=== PATIENT | female | born 1990 | race African-American/Black ===

== ENCOUNTER 2017-06-03 15:24 | Emergency (ER) | payer SELFPAY ==
[2017-06-03 16:42] LABS: Bilirubin Moderate (Negative); Blood, Urine Moderate (Negative); Glucose, Urine (Dipstick) Negative (Negative); Ketone, Urine 80 mg/dL (Negative); Nitrite Negative (Negative); Protein, Urine (Dipstick) 30 mg/dL (Neg-Trace)
[2017-06-03 16:44] LABS: Hematocrit 37.9 % (36.0-47.0); Mean Platelet Volume 11.1 fL (7.4-10.4); Red Blood Cell (RBC) Count 5.12 mill/uL (4.20-5.40); White Blood Cell (WBC) Count 8.8 thou/uL (4.8-10.8)
[2017-06-03 16:45] LABS: Bacteria/HPF None Seen HPF (None Seen)
[2017-06-03 16:49] LABS: Hyaline Casts/LPF 0-3 HYALINE CAST LPF (0-3 Hyaline); Renal Epithelial None Seen HPF (0-3); Transitional Epithelial NONE SEEN HPF (0-3)
[2017-06-03 16:58] LABS: Anion Gap 15 mmol/L (10-20); BUN (Urea Nitrogen) 8 mg/dL (7.0-18.7); Calc. Creatinine Clearance 0 mL/min (70-130); Calcium 9.5 mg/dL (7.8-10.44); Carbon Dioxide 21 mmol/L (22-29); Chloride 105 mmol/L (98-107); Estimated GFR-MDRD Greater than 90
[2017-06-03 17:16] LABS: #Basophils 0.1 thou/uL (0.0-0.2); #Eosinphils 0.1 thou/uL (0.0-0.7); #Lymphocytes 2.2 thou/uL (1.20-3.40); #Monocytes 0.7 thou/uL (0.11-0.59); #Neutrophils 5.7 thou/uL (1.40-6.50); %Basophils 0.6 % (0.0-1.0); %Eosinophils 1.4 % (0.0-10.0); %Lymphocytes 25.2 % (21.0-51.0); %Monocytes 7.9 % (0.0-10.0); Anisocytosis SLIGHT = 6-15 cells (100X) (0-5/hpf); Hypochromia SLIGHT = 6-15 cells (100X) (0-5/hpf); Microcytosis SLIGHT = 6-15 cells (100X) (0-5/hpf)
[2017-06-03] MEDS ORDERED: Ketorolac Tromethamine 30 MG/ML VIAL ONE (17:53)
[2017-06-03] MEDS ORDERED: Ondansetron HCl/PF 4 MG/2 ML Vial ONE (17:53)
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
== END 2017-06-03 21:04 | disposition home or self-care (01) ==
LOC: ERS 15:24
DX: R05 Cough (principal); R09.81 Nasal congestion; J45.909 Unspecified asthma, uncomplicated; G40.409 Other generalized epilepsy and epileptic syndromes, not intractable, without status epilepticus; F31.9 Bipolar disorder, unspecified; F20.9 Schizophrenia, unspecified; F17.210 Nicotine dependence, cigarettes, uncomplicated
CPT/HCPCS: 36415; 71020; 80048; 81003; 81015; 81025; 85025; 87086; 96361; 96374; 96375; J1885; J2405

== ENCOUNTER 2017-07-28 23:52 | Emergency (ER) | payer SELFPAY ==
[2017-07-29 00:45] LABS: ALT (SGPT) 10 U/L (8-55); AST (SGOT) 14 U/L (5-34); Albumin 4.3 g/dL (3.5-5.0); Alkaline Phosphatase 45 U/L (40-150); Anion Gap 14 mmol/L (10-20); BUN (Urea Nitrogen) 9 mg/dL (7.0-18.7); Bilirubin, Total 0.8 mg/dL (0.2-1.2); Calc. Creatinine Clearance 0 mL/min (70-130); Calcium 9.5 mg/dL (7.8-10.44); Carbon Dioxide 23 mmol/L (22-29); Chloride 106 mmol/L (98-107); Estimated GFR-MDRD Greater than 90; Globulin 2.9 g/dL (2.4-3.5); Glucose 100 mg/dL (70-105); Potassium 3.1 mmol/L (3.5-5.1); Protein, Total 7.2 g/dL (6.0-8.3); Sodium 140 mmol/L (136-145)
[2017-07-29 00:52] LABS: Hemoglobin 13.1 g/dL (12.0-16.0); Mean Corpuscular HGB CONC 32.7 g/dL (32.0-36.0); Mean Corpuscular Hemoglobin 24.8 pg (27.0-31.0); Mean Platelet Volume 10.6 fL (7.4-10.4); Platelet Count 172 thou/uL (130-400); RBC Distribution Width 17.5 % (11.5-14.5); Red Blood Cell (RBC) Count 5.27 mill/uL (4.20-5.40); White Blood Cell (WBC) Count 7.7 thou/uL (4.8-10.8)
[2017-07-29 01:05] LABS: Eosinophils 1 % (0-10); Lymphocytes 49 % (21-51); MDiff Complete? YES; Monocytes 6 % (0-10); Neutrophil 44 % (42-75); Target Cells SLIGHT = 2-5 cells (100X) (0-1/hpf)
[2017-07-29] MEDS ORDERED: Mag-Al 1200 mg/1200 mg/30 ML UDCUP ONE (03:21)
[2017-07-29] MEDS ORDERED: Ondansetron ODT 4 MG TAB ONE (03:21)
[2017-07-29] MEDS ORDERED: Lidocaine Viscous Sol 2% 15 ml UD Cup ONE (03:22)
[2017-07-29] MEDS ORDERED: Promethazine 25 MG TAB ONE (03:33)
== END 2017-07-29 04:25 | disposition home or self-care (01) ==
LOC: ERS 23:52
DX: K29.70 Gastritis, unspecified, without bleeding (principal); J45.909 Unspecified asthma, uncomplicated; F31.9 Bipolar disorder, unspecified; F20.9 Schizophrenia, unspecified; F17.210 Nicotine dependence, cigarettes, uncomplicated
CPT/HCPCS: 36415; 80053; 85025; 99406; Q0162

== ENCOUNTER 2017-09-05 10:20 | Observation (INO) | payer SELFPAY ==
[2017-09-05] MEDS ORDERED: Ondansetron HCl/PF 4 MG/2 ML Vial ONE (10:33)
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
[2017-09-05 10:56] LABS: Hemoglobin 12.4 g/dL (12.0-16.0); Mean Corpuscular HGB CONC 31.8 g/dL (32.0-36.0); Mean Corpuscular Hemoglobin 24.1 pg (27.0-31.0); Mean Corpuscular Volume 75.7 fl (81.0-99.0); Mean Platelet Volume 10.4 fL (7.4-10.4); Platelet Count 171 thou/uL (130-400); RBC Distribution Width 17.4 % (11.5-14.5); Red Blood Cell (RBC) Count 5.15 mill/uL (4.20-5.40); White Blood Cell (WBC) Count 7.9 thou/uL (4.8-10.8)
[2017-09-05 11:01] LABS: BHCG - Serum Negative (NEGATIVE); Pregs Control Background? CLEAR/WHITE (CLR/WHITE); Pregs Control Bar Appear? YES (CONTROL BAR)
[2017-09-05 11:15] LABS: ALT (SGPT) 157 U/L (8-55); AST (SGOT) 297 U/L (5-34); Albumin 4.2 g/dL (3.5-5.0); Alkaline Phosphatase 48 U/L (40-150); Anion Gap 14 mmol/L (10-20); BUN (Urea Nitrogen) 9 mg/dL (7.0-18.7); Bilirubin, Total 1.5 mg/dL (0.2-1.2); Calc. Creatinine Clearance 0 mL/min (70-130); Carbon Dioxide 21 mmol/L (22-29); Chloride 106 mmol/L (98-107); Estimated GFR-MDRD Greater than 90; Globulin 2.9 g/dL (2.4-3.5); Glucose 110 mg/dL (70-105); Potassium 3.5 mmol/L (3.5-5.1); Protein, Total 7.1 g/dL (6.0-8.3); Sodium 137 mmol/L (136-145)
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
[2017-09-05 11:20] LABS: Anisocytosis SLIGHT = 6-15 cells (100X) (0-5/hpf); Lymphocytes 40 % (21-51); MDiff Complete? YES; Microcytosis SLIGHT = 6-15 cells (100X) (0-5/hpf); Monocytes 2 % (0-10); Myelocyte 1 % (0-0); Neutrophil 41 % (42-75); Nucleated RBC 1 % (0); Ovalocytes SLIGHT = 2-5 cells (100X) (0-1/hpf); PLT Morphology Comment Appears Adequate; Polychromasia SLIGHT = 2-3 cells (100X) (0-2/hpf); Reactive Lymphocytes 15 % (0-10); Target Cells MODERATE= 6-15 cells (100X) (0-1/hpf)
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
[2017-09-05] MEDS ORDERED: Ketorolac Tromethamine 30 MG/ML VIAL ONE (11:31)
[2017-09-05 11:49] LABS: Bilirubin Negative (Negative); Blood, Urine Large (Negative); Clarity CLOUDY (Clear); Glucose, Urine (Dipstick) Negative (Negative); Leukocyte Negative (Negative); Nitrite Negative (Negative); Protein, Urine (Dipstick) 100 mg/dL (Neg-Trace); pH, Urine 6.5 (5.0-9.0)
[2017-09-05 11:55] LABS: Specific Gravity, Urine 1.052 (1.002-1.036)
[2017-09-05 12:09] LABS: Bacteria/HPF None Seen HPF (None Seen); Squamous Epithelial 0-3 HPF (0-3); WBC/HPF 0-3 HPF (0-3)
[2017-09-05 12:10] LABS: Hyaline Casts/LPF NONE SEEN LPF (0-3 Hyaline)
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
[2017-09-05] MEDS ORDERED: HYDROcodone/Acetaminophen 10/325 mg Tablet PO PRN (14:46)
[2017-09-05] MEDS ORDERED: Dextrose 5% in Water 1,000 ML IV PRN ×2 (14:46→15:45)
[2017-09-05] MEDS ORDERED: Cyclobenzaprine 10 MG TAB PO PRN (14:46)
[2017-09-05] MEDS ORDERED: Acetaminophen 500 MG TAB PO SCH (14:46)
[2017-09-05] MEDS ORDERED: hydrALAZINE 20 MG/ML VIAL SLOW IVP PRN (14:46)
[2017-09-05] MEDS ORDERED: Ondansetron ODT 4 MG TAB PO PRN (14:46)
[2017-09-05] MEDS ORDERED: Dextrose 50% Abboject 50 ML SYRINGE SLOW IVP PRN ×2 (14:46→15:45)
[2017-09-05] MEDS: Acetaminophen 325 MG TAB PO SCH ×2 (16:05→23:01)
[2017-09-05] MEDS: traMADol HCl 50 MG TAB PO SCH ×2 (16:06→23:01)
[2017-09-05] MEDS: Ibuprofen 600 MG TAB PO SCH ×2 (16:06→23:01)
[2017-09-05 16:13] LABS: Hemoglobin 12.2 g/dL (12.0-16.0)
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
[2017-09-05 16:49] VITALS: BMI 26.2
[2017-09-05] MEDS ORDERED: ISOVUE-370 76%-LOCM 1 ML ONE (17:18)
[2017-09-05] MEDS: Sodium Chloride 0.9% 1,000 ML IV SCH (17:52)
[2017-09-05] MEDS: Ondansetron HCl/PF 4 MG/2 ML Vial IVP PRN (17:52)
[2017-09-05] MEDS: Famotidine 20 MG TAB PO SCH (23:02)
[2017-09-05 23:12] LABS: Hemoglobin 11.4 g/dL (12.0-16.0)
[2017-09-06] MEDS: Acetaminophen 325 MG TAB PO SCH ×6 (02:51→20:47)
[2017-09-06] MEDS: traMADol HCl 50 MG TAB PO SCH ×5 (03:40→20:47)
[2017-09-06] MEDS: Sodium Chloride 0.9% 1,000 ML IV SCH ×4 (03:41→23:43)
[2017-09-06 04:52] LABS: ALT (SGPT) 114 U/L (8-55); AST (SGOT) 99 U/L (5-34); Albumin 3.6 g/dL (3.5-5.0); Alkaline Phosphatase 39 U/L (40-150); Anion Gap 11 mmol/L (10-20); BUN (Urea Nitrogen) 9 mg/dL (7.0-18.7); Band 2 % (5-11); Bilirubin, Total 1.5 mg/dL (0.2-1.2); Calc. Creatinine Clearance 120 mL/min (70-130); Calcium 8.5 mg/dL (7.8-10.44); Carbon Dioxide 22 mmol/L (22-29); Chloride 108 mmol/L (98-107); Estimated GFR-MDRD Greater than 90; Globulin 2.6 g/dL (2.4-3.5); Glucose 78 mg/dL (70-105); Hemoglobin 10.6 g/dL (12.0-16.0); Lymphocytes 34 % (21-51); MDiff Complete? YES; Mean Corpuscular Hemoglobin 24.1 pg (27.0-31.0); Mean Corpuscular Volume 75.5 fl (81.0-99.0); Monocytes 8 % (0-10); Neutrophil 56 % (42-75); Platelet Count 137 thou/uL (130-400); Potassium 3.6 mmol/L (3.5-5.1); Protein, Total 6.2 g/dL (6.0-8.3); RBC Distribution Width 17.1 % (11.5-14.5); Red Blood Cell (RBC) Count 4.38 mill/uL (4.20-5.40); Sodium 137 mmol/L (136-145); White Blood Cell (WBC) Count 7.2 thou/uL (4.8-10.8)
[2017-09-06] MEDS: Ibuprofen 600 MG TAB PO SCH ×3 (05:39→20:52)
[2017-09-06] MEDS: Ferrous Sulfate 325 MG TAB PO SCH ×2 (08:07→17:27)
[2017-09-06] MEDS: Ascorbic Acid 500 mg Chewable Tablet PO SCH ×2 (08:07→20:48)
[2017-09-06] MEDS: Famotidine 20 MG TAB PO SCH ×2 (08:07→20:47)
[2017-09-06] MEDS: Ondansetron HCl/PF 4 MG/2 ML Vial IVP PRN ×2 (09:17→17:08)
[2017-09-06] MEDS ORDERED: hydrOXYzine 25 MG TAB PO PRN (10:10)
[2017-09-06] MEDS ORDERED: Phenytoin 50 MG Chewable Tablet PO SCH (15:00)
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
[2017-09-06] MEDS: Ketorolac Tromethamine 30 MG/ML VIAL IVP SCH ×2 (18:23→23:45)
[2017-09-06] MEDS: Acetaminophen 1,000 MG in Premix Bag 1 BAG IVPB SCH ×2 (18:24→23:45)
[2017-09-06] MEDS: risperiDONE 1 MG TAB PO SCH ×2 (20:35→20:49)
[2017-09-06] MEDS: Benztropine 1 MG TAB PO SCH ×2 (20:35→20:46)
[2017-09-07] MEDS: Acetaminophen 325 MG TAB PO SCH ×6 (00:01→21:42)
[2017-09-07] MEDS: traMADol HCl 50 MG TAB PO SCH ×4 (02:38→21:46)
[2017-09-07] MEDS ORDERED: Promethazine HCl 25 MG/ML VIAL IM PRN ×2 (02:57→02:59)
[2017-09-07] MEDS: Ketorolac Tromethamine 30 MG/ML VIAL IVP SCH ×2 (05:09→11:51)
[2017-09-07] MEDS: Ibuprofen 600 MG TAB PO SCH ×3 (05:09→21:42)
[2017-09-07] MEDS: Acetaminophen 1,000 MG in Premix Bag 1 BAG IVPB SCH ×3 (05:10→16:50)
[2017-09-07 05:57] LABS: Eosinophils 1 % (0-10); Hemoglobin 10.7 g/dL (12.0-16.0); Hypochromia SLIGHT = 6-15 cells (100X) (0-5/hpf); Lymphocytes 30 % (21-51); MDiff Complete? YES; Mean Corpuscular HGB CONC 31.9 g/dL (32.0-36.0); Mean Corpuscular Hemoglobin 24.3 pg (27.0-31.0); Mean Corpuscular Volume 76.2 fl (81.0-99.0); Mean Platelet Volume 10.2 fL (7.4-10.4); Monocytes 5 % (0-10); Neutrophil 63 % (42-75); Platelet Count 140 thou/uL (130-400); RBC Distribution Width 17.1 % (11.5-14.5); Reactive Lymphocytes 1 % (0-10); Red Blood Cell (RBC) Count 4.42 mill/uL (4.20-5.40); Target Cells SLIGHT = 2-5 cells (100X) (0-1/hpf); White Blood Cell (WBC) Count 5.6 thou/uL (4.8-10.8)
[2017-09-07 05:59] LABS: Anion Gap 14 mmol/L (10-20); BUN (Urea Nitrogen) 7 mg/dL (7.0-18.7); Calc. Creatinine Clearance 124 mL/min (70-130); Calcium 8.6 mg/dL (7.8-10.44); Carbon Dioxide 17 mmol/L (22-29); Chloride 108 mmol/L (98-107); Estimated GFR-MDRD Greater than 90; Glucose 61 mg/dL (70-105); Magnesium 1.8 mg/dL (1.6-2.6); Phosphorus 2.7 mg/dL (2.3-4.7); Potassium 3.6 mmol/L (3.5-5.1); Sodium 135 mmol/L (136-145)
[2017-09-07] MEDS ORDERED: Dextrose 5 %-0.45 % NaCl 1,000 ML IV SCH (06:45)
[2017-09-07] MEDS ORDERED: Phenytoin 50 MG Chewable Tablet PO SCH ×2 (09:00→10:00)
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
[2017-09-07] MEDS: Famotidine 20 MG TAB PO SCH ×2 (10:51→21:44)
[2017-09-07] MEDS: Benztropine 1 MG TAB PO SCH ×2 (10:51→21:44)
[2017-09-07] MEDS: Citalopram 20 MG TAB PO SCH (10:51)
[2017-09-07] MEDS: Ferrous Sulfate 325 MG TAB PO SCH ×2 (10:51→16:49)
[2017-09-07] MEDS: Ascorbic Acid 500 mg Chewable Tablet PO SCH ×2 (10:51→21:41)
[2017-09-07] MEDS: Phenytoin 50 MG Chewable Tablet PO SCH ×2 (15:04→21:41)
[2017-09-07] MEDS: risperiDONE 1 MG TAB PO SCH (21:43)
[2017-09-07] MEDS ORDERED: HYDROcodone/Acetaminophen 10/325 mg Tablet PO PRN (22:00)
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
[2017-09-08] MEDS: traMADol HCl 50 MG TAB PO SCH ×5 (01:50→21:30)
[2017-09-08] MEDS: Ibuprofen 600 MG TAB PO SCH ×3 (01:50→21:30)
[2017-09-08] MEDS: Acetaminophen 325 MG TAB PO SCH ×5 (01:50→23:59)
[2017-09-08] MEDS: Ferrous Sulfate 325 MG TAB PO SCH ×2 (09:11→15:16)
[2017-09-08] MEDS: Benztropine 1 MG TAB PO SCH ×2 (09:11→21:37)
[2017-09-08] MEDS: Ascorbic Acid 500 mg Chewable Tablet PO SCH ×2 (09:11→21:37)
[2017-09-08] MEDS: Citalopram 20 MG TAB PO SCH (09:12)
[2017-09-08] MEDS: Famotidine 20 MG TAB PO SCH ×2 (09:12→21:37)
[2017-09-08] MEDS: Phenytoin 50 MG Chewable Tablet PO SCH ×3 (10:39→21:29)
[2017-09-08 13:13] VITALS: TEMP 97.9
[2017-09-08] MEDS ORDERED: Senokot S 8.6-50 MG TAB PO SCH (21:00)
[2017-09-08] MEDS: risperiDONE 1 MG TAB PO SCH (21:37)
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
[2017-09-09] MEDS: traMADol HCl 50 MG TAB PO SCH (02:45)
[2017-09-09] MEDS: Acetaminophen 325 MG TAB PO SCH (06:06)
[2017-09-09] MEDS: Ibuprofen 600 MG TAB PO SCH (06:06)
[2017-09-09 08:47] VITALS: BP 159/61
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
--- NOTE | 2017-09-13 18:03 | EKG ---
Test Reason : Blood Pressure : / mmHG Vent. Rate : 066 BPM Atrial Rate : 066 BPM P-R Int : 190 ms QRS Dur : 078 ms QT Int : 418 ms P-R-T Axes : 066 045 036 degrees QTc Int : 438 ms Normal sinus rhythm with sinus arrhythmia Normal ECG Confirmed by MICHELE VIGIL, OLGA ([id number]), editor greeting card ANETTE BOLIVAR ([id number]) on 09/13/2017 6:03:14 PM Referred By: Confirmed By:OLGA BAUTISTA MD
== END 2017-09-09 09:31 | disposition home or self-care (01) ==
LOC: ERS 10:20 → SJJU 11:21
PROVIDERS: ADMIT Surgery; ATTEND Surgery
DX: S32.019A Unspecified fracture of first lumbar vertebra, initial encounter for closed fracture (principal); K66.1 Hemoperitoneum; G89.11 Acute pain due to trauma; K56.7 Ileus, unspecified; F41.9 Anxiety disorder, unspecified; F31.9 Bipolar disorder, unspecified; J45.909 Unspecified asthma, uncomplicated; F17.210 Nicotine dependence, cigarettes, uncomplicated; Z88.0 Allergy status to penicillin; Z90.49 Acquired absence of other specified parts of digestive tract; V49.9XXA Car occupant (driver) (passenger) injured in unspecified traffic accident, initial encounter
CPT/HCPCS: 36415; 70450; 71045; 71260; 72125; 72170; 74019; 74177; 80048; 80053; 81003; 81015; 82150; 83735; 84100; 84703; 85025; 93005; 96361; 96374; 96375; 96376; G0378; G0390; J0131; J1885; J2270; J2405; J2550

== ENCOUNTER 2018-02-17 10:38 | Emergency (ER) | payer SELFPAY ==
[2018-02-17 11:12] LABS: Bilirubin Small (Negative); Blood, Urine Negative (Negative); Clarity CLOUDY (Clear); Glucose, Urine (Dipstick) Negative (Negative); Leukocyte Small (Negative); Nitrite Negative (Negative); Protein, Urine (Dipstick) 30 mg/dL (Neg-Trace); Specific Gravity, Urine 1.031 (1.002-1.036)
[2018-02-17 11:14] LABS: Bacteria/HPF 1+ HPF (None Seen); RBC/HPF 0-3 HPF (0-3); Squamous Epithelial 21-50 HPF (0-3)
[2018-02-17 11:16] LABS: Pathc Cast-AUWi Flag 4.65 (0-2.49)
[2018-02-17 11:17] LABS: Pregnancy Test - Urine (BHCG) POSITIVE (Negative); Pregu Control Background? CLEAR/WHITE (CLR/WHITE); Pregu Control Bar Appear? YES (CONTROL BAR); Specific Gravity 1.031 (1.002-1.036)
[2018-02-17 11:28] LABS: Hyaline Casts/LPF 0-3 HYALINE CAST LPF (0-3 Hyaline); Other Casts/LPF None Seen LPF (0-3 Hyaline)
[2018-02-17] MEDS ORDERED: Promethazine HCl 25 MG/ML VIAL ONE (11:38)
[2018-02-17 11:40] LABS: Hemoglobin 12.3 g/dL (12.0-16.0); Mean Corpuscular Hemoglobin 23.7 pg (27.0-31.0); Mean Corpuscular Volume 71.7 fL (78.0-98.0); Mean Platelet Volume 9.5 fL (7.4-10.4); Platelet Count 251 thou/uL (130-400); Red Blood Cell (RBC) Count 5.19 mill/uL (4.20-5.40); White Blood Cell (WBC) Count 13.7 thou/uL (4.8-10.8)
[2018-02-17 11:59] LABS: Anisocytosis SLIGHT = 6-15 cells (100X) (0-5/hpf); Eosinophils 1 % (0-10); Lymphocytes 36 % (21-51); MDiff Complete? YES; Microcytosis SLIGHT = 6-15 cells (100X) (0-5/hpf); Monocytes 5 % (0-10); Neutrophil 58 % (42-75); PLT Morphology Comment Appears Adequate; Target Cells SLIGHT = 2-5 cells (100X) (0-1/hpf)
[2018-02-17] MEDS ORDERED: diphenhydrAMINE 50 MG/ML VIAL ONE (12:54)
[2018-02-17] MEDS ORDERED: Metoclopramide HCl 10 MG/2 ML VIAL ONE (12:54)
[2018-02-17 12:56] LABS: Anion Gap 18 mmol/L (10-20); BUN (Urea Nitrogen) 9 mg/dL (7.0-18.7); Calc. Creatinine Clearance 0 mL/min (70-130); Calcium 9.6 mg/dL (7.8-10.44); Carbon Dioxide 17 mmol/L (22-29); Chloride 106 mmol/L (98-107); Estimated GFR-MDRD Greater than 90; Glucose 120 mg/dL (70-105); Potassium 3.9 mmol/L (3.5-5.1); Sodium 137 mmol/L (136-145)
[2018-02-17] MEDS ORDERED: cefTRIAXone\\ROCEPHIN 1 GM VIAL ONE (14:54)
--- NOTE | 2018-02-17 15:49 | ULT ---
PELVIC ULTRASOUND: 02/17/18 COMPARISON: None. HISTORY: Positive test and pelvic pain. TECHNIQUE: Multiplanar stark scale sonographic imaging of the pelvis obtained with transabdominal and endovaginal imaging. Ovaries are assessed with color flow and spectral analysis. FINDINGS: Uterus measures 9.2 x 4.9 x 5.9 cm. Left ovary could not be visualized. Right ovary measures 6.3 x 5. 9 x 6.0 cm and demonstrates normal blood flow. There is a large right ovarian cyst measuring at least 5.7 x 6.5 x 4.4 cm. No free fluid is seen in the pelvis. An intrauterine gestational sac is noted containing a yolk sac. No discrete pole is noted. Trace free fluid is noted in the pelvic cul-de-sac. A questionable pole is noted measuring in the 4-5 mm range, which would correlate with a 6 week , 1 day gestation. Gestational sac diameter of 1.4 cm correlates with a 6 week, 2 day gestation. Aver age age based on ultrasound is 6 weeks, 1 day with estimated date of delivery on 10/12/18. IMPRESSION: 1. Intrauterine gestational sac. At this point, no fecal heart tones can be visualized, which ma y be secondary to early status of the gestation. Thus, quantitative beta HCG followup in 48 hours is advised as is pelvic ultrasound if clinically warranted. 2. Findings suggesting a large right ovarian cyst measuring up to 6.5 cm. Blood flow is noted wi thin the right ovarian tissue. POS: [facility]
== END 2018-02-17 16:40 | disposition home or self-care (01) ==
LOC: ERS 10:38
DX: O21.9 Vomiting of pregnancy, unspecified (principal); O99.519 Diseases of the respiratory system complicating pregnancy, unspecified trimester; J45.909 Unspecified asthma, uncomplicated; O99.350 Diseases of the nervous system complicating pregnancy, unspecified trimester; G40.409 Other generalized epilepsy and epileptic syndromes, not intractable, without status epilepticus; O99.340 Other mental disorders complicating pregnancy, unspecified trimester; F31.9 Bipolar disorder, unspecified; F20.9 Schizophrenia, unspecified; F41.9 Anxiety disorder, unspecified; O99.330 Smoking (tobacco) complicating pregnancy, unspecified trimester; F17.210 Nicotine dependence, cigarettes, uncomplicated
CPT/HCPCS: 36415; 76856; 80048; 81003; 81015; 81025; 84702; 85025; 96365; 96366; 96367; 96368; 96375; J0696; J1200; J2550; J2765

== ENCOUNTER 2018-02-24 16:18 | Emergency (ER) | payer SELFPAY ==
[2018-02-24] MEDS ORDERED: diphenhydrAMINE 50 MG/ML VIAL ONE (17:54)
[2018-02-24] MEDS ORDERED: Metoclopramide HCl 10 MG/2 ML VIAL ONE (17:54)
[2018-02-24 17:56] LABS: Hemoglobin 10.9 g/dL (12.0-16.0); Mean Corpuscular HGB CONC 33.7 g/dL (32.0-36.0); Mean Corpuscular Volume 71.2 fL (78.0-98.0); Platelet Count 241 thou/uL (130-400); RBC Distribution Width 16.6 % (11.5-14.5); Red Blood Cell (RBC) Count 4.53 mill/uL (4.20-5.40)
[2018-02-24 18:10] LABS: Bilirubin Small (Negative); Blood, Urine Negative (Negative); Clarity TURBID (Clear); Glucose, Urine (Dipstick) Negative (Negative); Leukocyte Small (Negative); Nitrite Negative (Negative); Protein, Urine (Dipstick) 100 mg/dL (Neg-Trace); Specific Gravity, Urine 1.031 (1.002-1.036)
[2018-02-24 18:13] LABS: Squamous Epithelial 21-50 HPF (0-3); WBC/HPF 21-50 HPF (0-3)
[2018-02-24 18:13] LABS: Anisocytosis SLIGHT = 6-15 cells (100X) (0-5/hpf); Band 2 % (5-11); Hypochromia SLIGHT = 6-15 cells (100X) (0-5/hpf); Lymphocytes 10 % (21-51); MDiff Complete? YES; Monocytes 3 % (0-10); Neutrophil 85 % (42-75); Ovalocytes SLIGHT = 2-5 cells (100X) (0-1/hpf); PLT Morphology Comment Appears Adequate; Target Cells SLIGHT = 2-5 cells (100X) (0-1/hpf); Tear Drops SLIGHT = 2-5 cells (100X) (0-1/hpf)
[2018-02-24 18:14] LABS: Pathc Cast-AUWi Flag 12.06 (0-2.49); Yeast-AUWi Flag 36.3 (0-25.0)
[2018-02-24 18:14] LABS: ALT (SGPT) 11 U/L (8-55); AST (SGOT) 14 U/L (5-34); Albumin 4.5 g/dL (3.5-5.0); Alkaline Phosphatase 48 U/L (40-150); Anion Gap 16 mmol/L (10-20); BUN (Urea Nitrogen) 7 mg/dL (7.0-18.7); Bilirubin, Total 1.7 mg/dL (0.2-1.2); Calc. Creatinine Clearance 0 mL/min (70-130); Calcium 9.9 mg/dL (7.8-10.44); Carbon Dioxide 17 mmol/L (22-29); Chloride 106 mmol/L (98-107); Estimated GFR-MDRD Greater than 90; Globulin 3.1 g/dL (2.4-3.5); Glucose 115 mg/dL (70-105); Potassium 3.1 mmol/L (3.5-5.1); Protein, Total 7.6 g/dL (6.0-8.3); Sodium 136 mmol/L (136-145)
[2018-02-24 18:20] LABS: Amphetamine Not Detected (NotDetected); Barbiturates Screen Not Detected (NotDetected); Benzodiazepine Screen Not Detected (NotDetected); Cocaine Metabolite Screen Not Detected (NotDetected); Medtox Control Line Valid? VALID (VALID); Medtox Reader # READER 1; Methadone Not Detected (NotDetected); Methamphetamine Not Detected (NotDetected); Opiate Screen Not Detected (NotDetected); Oxycodone Screen Not Detected (NotDetected); Phencyclidine (PCP) Not Detected (NotDetected); THC/Cannabinoid Screen Not Detected (NotDetected); Tricyclic Screen Not Detected (NotDetected)
[2018-02-24 18:24] LABS: Bacteria/HPF 2+ HPF (None Seen); Hyaline Casts/LPF 0-3 HYALINE CAST LPF (0-3 Hyaline); Manual Microscopic Reviewed? No Path Casts Seen; Yeast-All Forms None Seen HPF (None Seen)
--- NOTE | 2018-02-24 20:59 | ULT ---
TRANSVAGINAL PELVIC ULTRASOUND: INDICATIONS: History of vaginal bleeding. Left lower quadrant abdominal pain. . COMPARISON: 02/17/2018 FINDINGS: The uterus measures 10.2 x 6.6 x 5.3 cm. There is an intrauterine gestational sac with a pole and yolk sac identified. Cardiac activity is associated with the pole, to 122 beats per minute . A small collection of subchorionic hemorrhage is seen along the superior edge of the gestational s ac, not present on the prior examination. This collection measures approximately 1.5 x 0.5 x 0.7 cm. No free fluid is evident. The right ovary measures 6 x 7 x 6.9 cm. A 6.1 cm cyst is again seen within the right ovary. There is normal flow to the right ovary. The left ovary measures 3.2 x 1.7 x 2.1 cm. There is normal flow to the left ovary. No free fluid is identified. IMPRESSION: 1. Demonstrated pole within the intrauterine gestational sac with an associated yolk sac and c ardiac activity noted at 122 beats per minute. A small subchorionic hemorrhage is seen along the sup erior aspect of the gestational sac, occupying less than 25% of the circumference of the gestational sac. Continued clinical and sonographic followup is recommended. 2. Stable right ovarian follicular cyst, measuring 6.1 cm. POS: [facility]
[2018-02-24] MEDS ORDERED: Azithromycin 250 MG TAB ONE (22:04)
[2018-02-24] MEDS ORDERED: cefTRIAXone\\ROCEPHIN 250 MG VIAL ONE (22:04)
[2018-02-26 22:43] LABS: Chlamydia by PCR DETECTED (NotDetected); GC by PCR Not Detected (NotDetected)
== END 2018-02-24 21:52 | disposition home or self-care (01) ==
LOC: ERS 16:18
DX: O21.0 Mild hyperemesis gravidarum (principal); O99.89 Other specified diseases and conditions complicating pregnancy, childbirth and the puerperium; N89.8 Other specified noninflammatory disorders of vagina; O99.511 Diseases of the respiratory system complicating pregnancy, first trimester; J45.909 Unspecified asthma, uncomplicated; O99.331 Smoking (tobacco) complicating pregnancy, first trimester; Z3A.01 Less than 8 weeks gestation of pregnancy; Z79.899 Other long term (current) drug therapy
CPT/HCPCS: 36415; 76856; 80053; 80306; 81003; 81015; 84702; 85025; 86900; 86901; 87480; 87491; 87510; 87591; 87660; 93976; 96365; 96366; 96375; J0696; J1200; J2765

== ENCOUNTER 2018-05-21 20:26 | Emergency (ER) | payer OTHER, SELFPAY ==
[2018-05-21 20:57] LABS: Bilirubin Negative (Negative); Blood, Urine Negative (Negative); Clarity CLOUDY (Clear); Glucose, Urine (Dipstick) Negative (Negative); Leukocyte Moderate (Negative); Nitrite Negative (Negative); Pregnancy Test - Urine (BHCG) POSITIVE (Negative); Pregu Control Background? CLEAR/WHITE (CLR/WHITE); Pregu Control Bar Appear? YES (CONTROL BAR); Protein, Urine (Dipstick) Negative (Neg-Trace); Specific Gravity, Urine 1.013 (1.002-1.036)
[2018-05-21 20:58] LABS: Specific Gravity 1.013 (1.002-1.036)
[2018-05-21 20:59] LABS: Bacteria/HPF 1+ HPF (None Seen); Hyaline Casts/LPF 0-3 HYALINE CAST LPF (0-3 Hyaline); Pathc Cast-AUWi Flag 0.29 (0-2.49)
[2018-05-21 21:07] LABS: RBC/HPF 0-3 HPF (0-3)
[2018-05-21 21:35] LABS: ALT (SGPT) Less than 7 U/L (8-55); AST (SGOT) 10 U/L (5-34); Albumin 3.5 g/dL (3.5-5.0); Alkaline Phosphatase 38 U/L (40-150); Anion Gap 10 mmol/L (10-20); BUN (Urea Nitrogen) 9 mg/dL (7.0-18.7); Bilirubin, Total 0.5 mg/dL (0.2-1.2); Calc. Creatinine Clearance 0 mL/min (70-130); Calcium 8.5 mg/dL (7.8-10.44); Carbon Dioxide 25 mmol/L (22-29); Chloride 104 mmol/L (98-107); Estimated GFR-MDRD Greater than 90; Globulin 2.6 g/dL (2.4-3.5); Glucose 68 mg/dL (70-105); Potassium 3.5 mmol/L (3.5-5.1); Protein, Total 6.1 g/dL (6.0-8.3); Sodium 135 mmol/L (136-145)
[2018-05-21 21:45] LABS: Band 1 % (5-11); Hemoglobin 8.9 g/dL (12.0-16.0); Hypochromia SLIGHT = 6-15 cells (100X) (0-5/hpf); Lymphocytes 34 % (21-51); MDiff Complete? YES; Mean Corpuscular HGB CONC 32.9 g/dL (32.0-36.0); Mean Corpuscular Hemoglobin 23.5 pg (27.0-31.0); Mean Corpuscular Volume 71.4 fL (78.0-98.0); Mean Platelet Volume 9.6 fL (7.4-10.4); Microcytosis SLIGHT = 6-15 cells (100X) (0-5/hpf); Monocytes 4 % (0-10); Neutrophil 61 % (42-75); Platelet Count 206 thou/uL (130-400); Polychromasia SLIGHT = 2-3 cells (100X) (0-2/hpf); Red Blood Cell (RBC) Count 3.78 mill/uL (4.20-5.40); Target Cells SLIGHT = 2-5 cells (100X) (0-1/hpf); White Blood Cell (WBC) Count 10.4 thou/uL (4.8-10.8)
== END 2018-05-21 22:01 | disposition home or self-care (01) ==
LOC: ERS 20:26
DX: O23.42 Unspecified infection of urinary tract in pregnancy, second trimester (principal); O99.512 Diseases of the respiratory system complicating pregnancy, second trimester; J45.909 Unspecified asthma, uncomplicated; O99.342 Other mental disorders complicating pregnancy, second trimester; F41.9 Anxiety disorder, unspecified; F20.9 Schizophrenia, unspecified; F31.9 Bipolar disorder, unspecified; O99.332 Smoking (tobacco) complicating pregnancy, second trimester; F17.210 Nicotine dependence, cigarettes, uncomplicated; Z79.899 Other long term (current) drug therapy; Z3A.16 16 weeks gestation of pregnancy
CPT/HCPCS: 36415; 80053; 81003; 81015; 81025; 85025; 99284

== ENCOUNTER 2018-08-12 13:21 | Inpatient (IN) | payer OTHER ==
[2018-08-12] MEDS ORDERED: Lactated Ringer's 1,000 ML IV SCH (13:45)
[2018-08-12] MEDS ORDERED: Ondansetron HCl/PF 8 MG in Sodium Chloride 0.9% 50 ML IVPB SCH (14:00)
[2018-08-12] MEDS: Lactated Ringer's 1,000 ML IV SCH (14:06)
--- NOTE | 2018-08-12 14:09 | PDOC.LDHP ---
Labor and Delivery H&P HPI: Pt is a 27 y/o F at 31.3 wga with seizure disorder presenting to hospital for persistent vomiting. Started 3d ago and she has not been able to keep anything down, including medications. She does not know what medications she has been given for hyperemesis in and states she cannot keep anything anyways. She does endorse vaginal bleeding, LOF since last night, and contractions, but she is unable to complete additional history 2/2 vomiting. She does describe fluid as clear, large and continued. She denies any other complications in her , but does have seizure disorder and Dilantin was changed to Keppra during the pregnacy. She does state, however that she has not taken Keppra 2/2 N/V and has thus not been on any seizure prevention. . Allergies/Adverse Reactions: Allergies Allergy/AdvReac Type Severity Reaction Status Date / Time Penicillins Allergy Rash Verified 08/12/18 14:59 - Physical Exam Vital signs reviewed and normal: yes General: other (mild distress, vomiting and agitated) Heart: RRR Lungs: nonlabored breathing Abdomen: NTTP Extremeties: no edema FHT: category 1 - Vaginal Exam cm dilated: 0 Effacement: 0% Station: -3 - OB Labs Blood type: O RH: positive Antibody Screen: negative HIV: negative RPR: negative HEPSAg: negative GBS: unknown Urine drug screen: not done Rubella: immune - Plan -: 27 y/o at 31.12 by 8w sono admitted for PPROM. 1. PPROM - ROM likely morning of 08/12 with pos Amnisure. Plan for continuous monitoring, betamethasone x2, GBS ppx with Vanc 2/2 PCN allergy. Strict bed rest. 24hr neuroprotection with Mg with continuous checks q4hr. US confirms Vertex presentation and will check predicted weight. Anticipate delivery if distress, fever, etc... 2. sUIP: Category 1 strip thus far. Continue to monitor. Labs reviewed 3. Hx/O seizure disorder - Pt has not been taking her seizure medications. Will resume Keppra 500mg BID and transition to PO as tolerated. 4. Hyperemesis -Continue LR, Zofran PRN, Phenergan PRN. CLD diet for now, and advance as tolerated. Does have a history with previous pregnancies. 5. Hypokalemia - Will replete with 40mEq IV and recheck CMP in am. PO if tolerating. 6. Hx/o Depression - Has been off of Celexa during the . Also off of Risperdal for unknown mood disorder. Case discussed with and orders reviewed with Dr Jefferson. Addendum - Attending - Attending Attestation Date/Time: 08/12/181906 I personally evaluated the patient and discussed the management with Dr. Chou I agree with the History, Examination, Assessment and Plan documented above.
[2018-08-12 14:59] LABS: Hemoglobin 9.7 g/dL (12.0-16.0); Mean Corpuscular HGB CONC 32.4 g/dL (32.0-36.0); Mean Corpuscular Hemoglobin 22.9 pg (27.0-31.0); Mean Corpuscular Volume 70.8 fL (78.0-98.0); Mean Platelet Volume 10.7 fL (7.4-10.4); Platelet Count 191 thou/uL (130-400); RBC Distribution Width 15.3 % (11.5-14.5); Red Blood Cell (RBC) Count 4.22 mill/uL (4.20-5.40); White Blood Cell (WBC) Count 15.9 thou/uL (4.8-10.8)
[2018-08-12 15:11] LABS: ALT (SGPT) 11 U/L (8-55); AST (SGOT) 14 U/L (5-34); Albumin 3.8 g/dL (3.5-5.0); Alkaline Phosphatase 99 U/L (40-150); Anion Gap 15 mmol/L (10-20); BUN (Urea Nitrogen) 8 mg/dL (7.0-18.7); Calc. Creatinine Clearance 129 mL/min (70-130); Calcium 9.5 mg/dL (7.8-10.44); Carbon Dioxide 21 mmol/L (22-29); Chloride 103 mmol/L (98-107); Estimated GFR-MDRD Greater than 90; Globulin 3.8 g/dL (2.4-3.5); Glucose 80 mg/dL (70-105); Potassium 3.1 mmol/L (3.5-5.1); Protein, Total 7.6 g/dL (6.0-8.3); Sodium 136 mmol/L (136-145)
[2018-08-12 15:15] LABS: #Monocytes 0.7 thou/uL (0.11-0.59); #Neutrophils 13.2 thou/uL (1.40-6.50); %Basophils 0.2 % (0.0-1.0); %Eosinophils 0.1 % (0.0-10.0); %Lymphocytes 12.5 % (21.0-51.0); %Monocytes 4.1 % (0.0-10.0); %Neutrophils 83.1 % (42.0-75.0); Anisocytosis SLIGHT = 6-15 cells (100X) (0-5/hpf); Elliptocytes SLIGHT = 2-5 cells (100X) (0-1/hpf); Hypochromia SLIGHT = 6-15 cells (100X) (0-5/hpf); MDiff Complete? YES; Platelet Morphology Comment Appears Adequate; Poikilocytosis SLIGHT = 6-15 cells (100X) (0-5/hpf); Target Cells SLIGHT = 2-5 cells (100X) (0-1/hpf); Tear Drops SLIGHT = 2-5 cells (100X) (0-1/hpf)
[2018-08-12 15:15] LABS: Amnisure Test RUPTURE DETECTED (No Rupture)
[2018-08-12 15:16] LABS: Amnisure Internal Control QC ACCEPTABLE (ACCEPTABLE)
[2018-08-12] MEDS ORDERED: Betamet Acet/Betamet Na Ph 30 MG/5 ML VIAL ONE (15:19)
[2018-08-12] MEDS ORDERED: Ibuprofen 800 MG TAB PO PRN (15:28)
[2018-08-12] MEDS ORDERED: Acetaminophen 500 MG TAB PO PRN (15:28)
[2018-08-12] MEDS ORDERED: Ondansetron PF 4 MG/2 ML Vial IVP PRN (15:28)
[2018-08-12] MEDS ORDERED: Calcium Gluconate 4.6 MEQ, Admixture Fee 1 EACH in Sodium Chloride 0.9% 100 ML IVPB PRN (15:28)
[2018-08-12] MEDS ORDERED: NS / Oxytocin 40 units/1000ml 1,000 ML IV PRN (15:28)
[2018-08-12] MEDS ORDERED: Lidocaine 1% (PF) 30 ML VIAL SC PRN (15:28)
[2018-08-12] MEDS ORDERED: Docusate 100 MG CAP PO PRN (15:28)
[2018-08-12] MEDS ORDERED: Promethazine HCl 25 MG/ML VIAL IM PRN (15:28)
[2018-08-12] MEDS ORDERED: HYDROcodone/Acetaminophen 5/325 mg Tablet PO PRN (15:28)
[2018-08-12] MEDS ORDERED: Butorphanol Tartrate 1 MG/ML VIAL SLOW IVP PRN (15:28)
[2018-08-12] MEDS ORDERED: AZITHROMYCIN IVPB ONE (15:45)
[2018-08-12] MEDS ORDERED: diphenhydrAMINE 50 MG/ML VIAL IVP PRN (15:49)
[2018-08-12] MEDS: Betamet Acet/Betamet Na Ph 30 MG/5 ML VIAL IM SCH (15:53)
[2018-08-12 16:18] LABS: HBSAg Index 0.25 S/CO (0-0.99); HIV (1/2) Antibody/Antigen Non-Reactive (NonReactive); HIV 1/2 INDEX 0.06 S/CO (<1.00); Hep B Surf Ag Non-Reactive S/CO (NonReactive)
--- NOTE | 2018-08-12 16:26 | PDOC.EVN ---
Event Note - Event Note Event Note: 27 yo BF at 31+ weeks presents c/o N/V and LOF. PNC at Clinic w/ EDC by 1st trimester scan. Amniosure is positive. FHTs stable, no UCs seen. USG shows biometry c/w dates, vtx, YADIRA= 4. Will start ABX for GBS, Mg for neuroprotection, and steroids x2. Will deliver for chorioamnionitis, distress or labor. Pt. and SO understand and agree with plan.
[2018-08-12 16:28] LABS: Syphilis Antibody Nonreactive (Nonreactive); Syphilis Antibody Index 0.03 S/CO (<1.00 Non-Reactive)
[2018-08-12] MEDS ORDERED: Azithromycin 500 MG in Sodium Chloride 0.9% 250 ML 250 ML IVPB SCH (16:30)
[2018-08-12] MEDS ORDERED: VANCOMYCIN IVPB PRN (16:37)
[2018-08-12] MEDS ORDERED: Potassium Chloride 40 MEQ in Sodium Chloride 0.9% 250 ML 250 ML IVPB SCH (16:45)
--- NOTE | 2018-08-12 16:51 | ULT ---
OB ULTRASOUND: 08/12/18 HISTORY: Premature rupture of membranes. Multiple longitudinal and transverse images of an intrauterine is obtained using a multiher tz curvilinear transducer. Real time, color flow and M-mode sonography demonstrates a viable intraute rine with the fetus in cephalic presentation. The placenta is anterior. Amniotic fluid inde x measures 4.3 cm. No evidence of placenta previa seen. BIOMETRICS: Biparietal diameter 79 mm 31 weeks, 6 days Head circumference 283 mm 31 weeks, 0 days Abdominal circumference 246 mm 28 weeks, 6 days Femur length 53 mm 28 weeks, 0 days Composite age equals 30 weeks, 0 days with an estimated dated of delivery of 10/21/18. Estimated weight is 1314 grams +/- 194 grams. IMPRESSION: 1. Viable IUP with cardiac activity measuring 139 beats per minute. Estimated gestational age 30 weeks, 0 days with an estimated date of delivery of 10/21/18. Estimated weight is 1314 grams +/- 194 grams. 2. Amniotic fluid index measures 4.3 cm. POS: [facility]
[2018-08-12] MEDS: Magnesium Sulfate 20 gm/500 ml 20 GM/500 ML BAG IVPB SCH (16:52)
[2018-08-12] MEDS ORDERED: diphenhydrAMINE 50 MG/ML VIAL ONE (16:58)
[2018-08-12] MEDS: Vancomycin HCl 1 GM in Premix Bag 1 BAG IVPB SCH (17:00)
--- NOTE | 2018-08-12 20:26 | PDOC.EVN ---
Event Note - Event Note Event Note: Mag Check 27 y/o at 31.12 by 8w sono admitted for PPROM. Patient denies change in vision, headache. Says nausea has improved, though she has only taken sips of liquids. She feels like she is going to have a seizure, feels hot and cold and has restless legs like one is coming on. Has some dizziness when sitting upright. Wishes she could lay on her stomach. Patient seem anxious. Cat 1 strip - 130/mod/+accel/no decel Urine output 100mL in past 2 hours, pt refused catheter and prefers bedpan. DTRs intact. Pending urine studies. Mag lab check @ midnight. IVF input totals 150-175 mL/hr. 1. PPROM - ROM likely morning of 08/12 with pos Amnisure. Plan for continuous monitoring, betamethasone x2, GBS ppx with Vanc 2/2 PCN allergy. Strict bed rest. 24hr neuroprotection with Mg with continuous checks q4hr. US confirms Vertex presentation. Anticipate delivery if distress, fever, etc. 2. sUIP: Category 1 strip. 3. Hx/O seizure disorder - Pt has not been taking her seizure medications. Will resume Keppra 500mg BID and transition to PO as tolerated. 4. Hyperemesis -Continue LR, Zofran PRN, Phenergan PRN. CLD diet for now, and advance as tolerated. Does have a history with previous pregnancies. 5. Hypokalemia - Will replete with 40mEq IV and recheck CMP in am. PO if tolerating. 6. Hx/o Depression - Has been off of Celexa during the . Also off of Risperdal for unknown mood disorder. Addendum - Attending - Attending Attestation Date/Time: 08/12/182055 I personally evaluated the patient and discussed the management with Dr. Arora. I agree with the Assessment and Plan documented above
[2018-08-12 20:58] LABS: Bilirubin Small (Negative); Blood, Urine Large (Negative); Clarity CLOUDY (Clear); Glucose, Urine (Dipstick) Negative (Negative); Leukocyte Moderate (Negative); Nitrite Negative (Negative); Protein, Urine (Dipstick) 30 mg/dL (Neg-Trace); Specific Gravity, Urine 1.036 (1.002-1.036)
[2018-08-12 21:00] LABS: Bacteria/HPF Rare-Few HPF (None Seen); Pathc Cast-AUWi Flag 3.19 (0-2.49)
[2018-08-12 21:06] LABS: Amphetamine Not Detected (NotDetected); Barbiturates Screen Not Detected (NotDetected); Benzodiazepine Screen Not Detected (NotDetected); Cocaine Metabolite Screen Not Detected (NotDetected); Medtox Control Line Valid? VALID (VALID); Medtox Reader # READER 1; Methadone Not Detected (NotDetected); Methamphetamine Not Detected (NotDetected); Opiate Screen Not Detected (NotDetected); Oxycodone Screen Not Detected (NotDetected); Phencyclidine (PCP) Not Detected (NotDetected); THC/Cannabinoid Screen Not Detected (NotDetected); Tricyclic Screen Not Detected (NotDetected)
[2018-08-12 21:13] LABS: Hyaline Casts/LPF 0-3 HYALINE CAST LPF (0-3 Hyaline); RBC/HPF 21-50 HPF (0-3)
[2018-08-12] MEDS ORDERED: Potassium Chloride 20 MEQ TAB PO SCH (21:15)
[2018-08-12] MEDS ORDERED: Calcium Carbonate 500 MG ChewTAB PO PRN (21:56)
[2018-08-12] MEDS ORDERED: CEFAZOLIN 1 GM in Sodium Chloride 0.9% 100 ML IVPB SCH (22:00)
--- NOTE | 2018-08-13 01:01 | PDOC.EVN ---
Event Note - Event Note Event Note: Mag Check 27 y/o at 31.12 by 8w sono admitted for PPROM. Patient denies change in vision, headache. Says she wishes we would leave her alone so she could sleep. Cat 2 strip - 120/mod/+accel. single decel seen on strip review, no contraction. Urine output 150mL in past 2 hours, pt refused catheter and prefers bedpan. Patient uncooperative with DTR exam. UDS negative. UA dirty, already on IV abx, ordered urine culture. Mag lab check @ midnight result pending. VSS, afebrile. Tums and pepcid for reflux. 1. PPROM - ROM likely morning of 08/12 with pos Amnisure. Plan for continuous monitoring, betamethasone, GBS ppx with Vanc 2/2 PCN allergy. Strict bed rest. 24hr neuroprotection with Mg with continuous checks q4hr. US confirms Vertex presentation. Anticipate delivery if distress, fever, etc. 2. sUIP 3. Hx/O seizure disorder - Pt has not been taking her seizure medications. Continue Keppra 500mg BID and transition to PO as tolerated. 4. Hyperemesis -Continue LR, Zofran PRN, Phenergan PRN. CLD diet for now, and advance as tolerated. Does have a history with previous pregnancies. 5. Hypokalemia - Did not tolerate IV replacement. Was able to take PO. Recheck on AM CMP. 6. Hx/o Depression - Has been off of Celexa during the . Also off of Risperdal for unknown mood disorder. Addendum - Attending - Attending Attestation Date/Time: 08/13/18 8000 I personally evaluated the patient and discussed the management with Dr. Arora. I agree with the Assessment and Plan documented above.
[2018-08-13] MEDS: Lactated Ringer's 1,000 ML IV SCH ×3 (02:51→20:41)
[2018-08-13] MEDS: Magnesium Sulfate 20 gm/500 ml 20 GM/500 ML BAG IVPB SCH (02:51)
[2018-08-13] MEDS ORDERED: Sodium Chloride 0.65% Nasal 44 ML BOT EA NARE PRN (03:55)
[2018-08-13] MEDS: guaiFENesin ER 600 MG TAB PO SCH ×2 (04:23→19:22)
[2018-08-13] MEDS: Vancomycin HCl 1 GM in Premix Bag 1 BAG IVPB SCH (05:11)
--- NOTE | 2018-08-13 05:19 | PDOC.EVN ---
Event Note - Event Note Event Note: CTSP re: wanting to leave hospital. Pt. upset re: being woken up to adjust toco, "can't get any sleep with all this medicine". VSS AF Fhts stable, no UCs seen. Long discussion with pt. and SO regardings risks of leaving AMA with PSROM. Plan at this time is dc Mg and begin intermittent monitoring. 2nd dose of steroids due later today. Pt. agrees to stay.
[2018-08-13 08:09] LABS: ALT (SGPT) 10 U/L (8-55); AST (SGOT) 15 U/L (5-34); Albumin 3.4 g/dL (3.5-5.0); Alkaline Phosphatase 96 U/L (40-150); Anion Gap 12 mmol/L (10-20); BUN (Urea Nitrogen) 4 mg/dL (7.0-18.7); Bilirubin, Total 0.6 mg/dL (0.2-1.2); Calc. Creatinine Clearance 127 mL/min (70-130); Calcium 8.3 mg/dL (7.8-10.44); Carbon Dioxide 21 mmol/L (22-29); Chloride 105 mmol/L (98-107); Estimated GFR-MDRD Greater than 90; Globulin 3.6 g/dL (2.4-3.5); Glucose 94 mg/dL (70-105); Potassium 3.9 mmol/L (3.5-5.1); Sodium 134 mmol/L (136-145)
--- NOTE | 2018-08-13 08:10 | PDOC.OBAPN ---
FMR OB AP PN: Sub - Interval History Hospital Day: 2 Chief Complaint: leaking of fluid, N/V Indentification: 27 y/o @ 31.4 WGA by 8.6 wk sono Interval History: Reports continued LOF and N/V. She is able to tolerate liquids. +FM, no ctx FMR OB AP PN: Obj - Maternal Vital signs: BP: 110/66 HR: 69 RR: 18 Tmax: 98.5 - Heart Tones Baseline: 120 Variability: moderate Acceleration: absent Deceleration: absent Category: category 1 [place] contractions every: None FMR OB AP PN: Exam - Physical Exam General: NAD, awake, alert and oriented HEENT: MMM, no scleral icterus, grossly normal vision, grossly normal hearing Neck: supple, FROM Heart: RRR, normal S1/S2, no murmurs/rubs/gallops, pulses present, no edema General: CTAB, no respiratory distress, good air movement, no rales/rhonchi, no wheezing, no retractions Abdomen: soft, gravid, non-tender Skin: good tugor, capillary refill <2 seconds Lymphatic: no unusual bruising or bleeding, no purpura Psychiatric: intact recent and remote memory, good judgement and insight FMR OB AP PN: Data - Labs Lab results: Laboratory Results - last 24 hr 08/12/18 08/12/18 08/12/18 14:41 14:41 14:41 WBC RBC Hgb Hct MCV MCH MCHC RDW Plt Count MPV Neutrophils % Neutrophils % (Manual) Lymphocytes % Monocytes % Eosinophils % Basophils % Neutrophils # Lymphocytes # Monocytes # Eosinophils # Basophils # Hypochromia Plt Morphology Comment Poikilocytosis Anisocytosis Target Cells Tear Drop Cells Elliptocytes Sodium Potassium Chloride Carbon Dioxide Anion Gap BUN Creatinine Estimated GFR (MDRD) Glucose Calcium Magnesium Total Bilirubin AST ALT Alkaline Phosphatase Serum Total Protein Albumin Globulin Albumin/Globulin Ratio Urine Color Urine Clarity Urine pH Ur Specific [place] Urine Protein Urine Glucose (UA) Urine Ketones Urine Blood Urine Nitrite Urine Bilirubin Urine Urobilinogen Ur Leukocyte Esterase Urine RBC Urine WBC Ur Squamous Epith Cells Urine Bacteria Hyaline Casts Amnio Swab Test Urine Opiates Screen Ur Oxycodone Screen Urine Methadone Screen Ur Propoxyphene Screen Ur Barbiturates Screen Ur Tricyclics Screen Ur Phencyclidine Scrn Ur Amphetamines Screen U Methamphetamines Scrn U Benzodiazepines Scrn U Cocaine Metab Screen U Cannabinoids Screen Drug Screen Comment Syphilis IgG/IgM Ab Nonreactive Hep Bs Antigen Non-Reactive HIV 1&2 Antigen & Ab Non-Reactive Blood Type O POSITIVE Antibody Screen NEGATIVE Band and Hold Cancelled 08/12/18 08/12/18 08/12/18 14:41 14:42 14:42 WBC 15.9 H RBC 4.22 Hgb 9.7 L Hct 29.9 L MCV 70.8 L MCH 22.9 L MCHC 32.4 RDW 15.3 H Plt Count 191 MPV 10.7 H Neutrophils % 83.1 H Neutrophils % (Manual) Not Reportable Lymphocytes % 12.5 L Monocytes % 4.1 Eosinophils % 0.1 Basophils % 0.2 Neutrophils # 13.2 H Lymphocytes # 2.0 Monocytes # 0.7 H Eosinophils # 0.0 Basophils # 0.0 Hypochromia SLIGHT = 6-15 cells Plt Morphology Comment Appears Adequate Poikilocytosis SLIGHT = 6-15 cells Anisocytosis SLIGHT = 6-15 cells Target Cells SLIGHT = 2-5 cells Tear Drop Cells SLIGHT = 2-5 cells Elliptocytes SLIGHT = 2-5 cells Sodium 136 Potassium 3.1 L Chloride 103 Carbon Dioxide 21 L Anion Gap 15 BUN 8 Creatinine 0.61 Estimated GFR (MDRD) Greater than 90 Glucose 80 Calcium 9.5 Magnesium 1.9 Total Bilirubin 1.0 AST 14 ALT 11 Alkaline Phosphatase 99 Serum Total Protein 7.6 Albumin 3.8 Globulin 3.8 H Albumin/Globulin Ratio 1.0 L Urine Color Urine Clarity Urine pH Ur Specific [place] Urine Protein Urine Glucose (UA) Urine Ketones Urine Blood Urine Nitrite Urine Bilirubin Urine Urobilinogen Ur Leukocyte Esterase Urine RBC Urine WBC Ur Squamous Epith Cells Urine Bacteria Hyaline Casts Amnio Swab Test Urine Opiates Screen Ur Oxycodone Screen Urine Methadone Screen Ur Propoxyphene Screen Ur Barbiturates Screen Ur Tricyclics Screen Ur Phencyclidine Scrn Ur Amphetamines Screen U Methamphetamines Scrn U Benzodiazepines Scrn U Cocaine Metab Screen U Cannabinoids Screen Drug Screen Comment Syphilis IgG/IgM Ab Hep Bs Antigen HIV 1&2 Antigen & Ab Blood Type Antibody Screen Band and Hold 08/12/18 08/12/18 08/12/18 14:53 20:15 20:15 WBC RBC Hgb Hct MCV MCH MCHC RDW Plt Count MPV Neutrophils % Neutrophils % (Manual) Lymphocytes % Monocytes % Eosinophils % Basophils % Neutrophils # Lymphocytes # Monocytes # Eosinophils # Basophils # Hypochromia Plt Morphology Comment Poikilocytosis Anisocytosis Target Cells Tear Drop Cells Elliptocytes Sodium Potassium Chloride Carbon Dioxide Anion Gap BUN Creatinine Estimated GFR (MDRD) Glucose Calcium Magnesium Total Bilirubin AST ALT Alkaline Phosphatase Serum Total Protein Albumin Globulin Albumin/Globulin Ratio Urine Color YAMILE Urine Clarity CLOUDY Urine pH 6.0 Ur Specific [place] 1.036 Urine Protein 30 H Urine Glucose (UA) Negative Urine Ketones > or equal to 80 H Urine Blood Large H Urine Nitrite Negative Urine Bilirubin Small H Urine Urobilinogen 1.0 Ur Leukocyte Esterase Moderate H Urine RBC 21-50 H Urine WBC Greater Than 50-TNTC H Ur Squamous Epith Cells 11-20 H Urine Bacteria Rare-Few Hyaline Casts 0-3 HYALINE CAST Amnio Swab Test RUPTURE DETECTED H Urine Opiates Screen Not Detected Ur Oxycodone Screen Not Detected Urine Methadone Screen Not Detected Ur Propoxyphene Screen Not Detected Ur Barbiturates Screen Not Detected Ur Tricyclics Screen Not Detected Ur Phencyclidine Scrn Not Detected Ur Amphetamines Screen Not Detected U Methamphetamines Scrn Not Detected U Benzodiazepines Scrn Not Detected U Cocaine Metab Screen Not Detected U Cannabinoids Screen Not Detected Drug Screen Comment Syphilis IgG/IgM Ab Hep Bs Antigen HIV 1&2 Antigen & Ab Blood Type Antibody Screen Band and Hold 08/13/18 00:35 WBC RBC Hgb Hct MCV MCH MCHC RDW Plt Count MPV Neutrophils % Neutrophils % (Manual) Lymphocytes % Monocytes % Eosinophils % Basophils % Neutrophils # Lymphocytes # Monocytes # Eosinophils # Basophils # Hypochromia Plt Morphology Comment Poikilocytosis Anisocytosis Target Cells Tear Drop Cells Elliptocytes Sodium Potassium Chloride Carbon Dioxide Anion Gap BUN Creatinine Estimated GFR (MDRD) Glucose Calcium Magnesium 4.1 H Total Bilirubin AST ALT Alkaline Phosphatase Serum Total Protein Albumin Globulin Albumin/Globulin Ratio Urine Color Urine Clarity Urine pH Ur Specific [place] Urine Protein Urine Glucose (UA) Urine Ketones Urine Blood Urine Nitrite Urine Bilirubin Urine Urobilinogen Ur Leukocyte Esterase Urine RBC Urine WBC Ur Squamous Epith Cells Urine Bacteria Hyaline Casts Amnio Swab Test Urine Opiates Screen Ur Oxycodone Screen Urine Methadone Screen Ur Propoxyphene Screen Ur Barbiturates Screen Ur Tricyclics Screen Ur Phencyclidine Scrn Ur Amphetamines Screen U Methamphetamines Scrn U Benzodiazepines Scrn U Cocaine Metab Screen U Cannabinoids Screen Drug Screen Comment Syphilis IgG/IgM Ab Hep Bs Antigen HIV 1&2 Antigen & Ab Blood Type Antibody Screen Band and Hold FMR OB AP PN: A/P - Problem List (1) premature rupture of membranes Current Visit: Yes Status: Acute Code(s): O42.919 - PRETRM VERNON ROM, UNSP TIME BETW RUPT AND ONST LABR, UNSP TRI Assessment and Plan: 27 y/o @ 31.4 WGA by 8.6 wk US here for PPROM PPROM confirmed with amnisure. YADIRA of 4.3 -s/p 1 dose celestone, 2nd dose due this afternoon -s/p magnesium, but pt did not tolerate it with frequent checks and it was d/c' d early this AM -Vanc and Azithromycin for GBS ppx -Will do intermittent monitoring -Will change meds to PO when pt is able to tolerate -Expectant management (2) Hyperemesis gravidarum Current Visit: No Status: Acute Code(s): O21.0 - MILD HYPEREMESIS GRAVIDARUM Assessment and Plan: Pt having significant N/V -Zofran and Phenergan prn -Will switch to PO meds once pt able to tolerate (3) Seizure disorder Current Visit: No Status: Chronic Code(s): G40.909 - EPILEPSY, UNSP, NOT INTRACTABLE, WITHOUT STATUS EPILEPTICUS Assessment and Plan: Pt had not been taking her Keppra -Started on 500mg BID of keppra -Plan to transition to PO once pt tolerating PO better Disposition: Monitor on L&D until decision for induction of labor Discussion: Date/Time: 08/13/18 0808 This H&P was discussed with Dr. Jefferson who agrees with the above documentation and plan. Signature: Roz Rocha MD, PGY-2 Addendum - Attending - Attending Attestation Date/Time: 08/16/18 [id number] I personally evaluated the patient and discussed the management with Dr. Rocha. I agree with the History, Examination, Assessment and Plan documented above.
[2018-08-13] MEDS: Famotidine 20 MG TAB PO SCH ×2 (08:35→22:31)
[2018-08-13] MEDS: Nicotine 14 MG PATCH TD SCH (08:36)
--- NOTE | 2018-08-13 11:25 | PDOC.EVN ---
Event Note - Event Note Event Note: Pt asked permission to leave the floor to meet her significant other in the gift shop and cafeteria. Pt cervix is closed and long. She was asked to make sure she had a pad on and not to be gone very long. Pt agreed. It has been one hour and pt unable to be found.
[2018-08-13] MEDS: Betamet Acet/Betamet Na Ph 30 MG/5 ML VIAL IM SCH (15:03)
[2018-08-13] MEDS ORDERED: Ondansetron ODT 4 MG TAB SL PRN ×2 (17:16→21:00)
[2018-08-13] MEDS: Fluconazole 100 MG TAB PO SCH (18:06)
[2018-08-13] MEDS: Ondansetron ODT 4 MG TAB SL PRN (22:30)
[2018-08-13] MEDS: Cefdinir 300 MG CAP PO SCH (22:30)
[2018-08-13] MEDS: levETIRAcetam 500 MG TAB PO SCH (22:30)
[2018-08-13] MEDS: Azithromycin 250 MG TAB PO SCH (22:31)
[2018-08-14] MEDS: levETIRAcetam 500 MG TAB PO SCH ×2 (08:46→22:23)
[2018-08-14] MEDS: Cefdinir 300 MG CAP PO SCH ×2 (08:46→22:23)
[2018-08-14] MEDS: guaiFENesin ER 600 MG TAB PO SCH ×2 (08:47→22:22)
[2018-08-14] MEDS: Nicotine 14 MG PATCH TD SCH (08:47)
[2018-08-14] MEDS: Famotidine 20 MG TAB PO SCH ×2 (08:47→22:23)
--- NOTE | 2018-08-14 09:09 | PRG ---
DATE OF SERVICE: 08/14/2018 ANTEPARTUM PROGRESS NOTE SUBJECTIVE: The patient is a 27-year-old female with an intrauterine at 31 weeks and 5 days, admitted for premature rupture of membranes. The patient's past medical history is significant for epilepsy and depression and an unknown mood disorder. Last 24 hours, the patient has been here on for antepartum care. Yesterday, the patient was transferred to for antepartum care. There has been reports of the patient's difficult behavior with the nursing staff. There is reports of her throwing things and she has frequently not been in the room. We have given the patient permission to leave on occasion to go for walks with her boyfriend. The patient at this time reports that she is having some abdominal pain. She denies fever or illness. She denies vaginal bleeding. NST was not performed yesterday. OBJECTIVE: VITAL SIGNS: Blood pressure 124/63, temperature 98.0, pulse of 85, respiratory rate 18, and saturating 96% on room air. GENERAL: She appears to be in no acute distress. She was unpleasant to interact with this morning. The patient is using foul language. ABDOMEN: Tender to palpation, but soft. EXTREMITIES: Nontender, nonedematous. ASSESSMENT AND PLAN: The patient is a 27-year-old female, here now hospital day 3 for premature rupture of membranes at 31 weeks' gestation. The patient in our conversation this morning has agreed to notify staffing when she wants to leave and when to expect her back, so we can coordinate her care more completely. I will also recommend that nobody enter her room by themselves so there can be witnesses to her behavior. We will continue expectant management at this time. She is on antibiotics for latency. Azithromycin and cefdinir, which we will continue for her 1-week course of latency of medications. She is also on fluconazole. She has taken one tablet yesterday and will take another tablet in 1 week and we will continue her on Keppra 500 mg twice a day for seizure disorder and a nicotine patch. I will be getting a CBC this morning as the patient is reporting some abdominal pain and we will continue to watch for signs of chorioamnionitis. The patient does have an elevated white count at the time of arrival of 15.9 with a left shift of 83%. Dr. Young will be the physician coming on duty and we will have her followup. Job ID: [id number]
[2018-08-14 10:25] LABS: Hemoglobin 9.2 g/dL (12.0-16.0); Mean Corpuscular HGB CONC 32.6 g/dL (32.0-36.0); Mean Corpuscular Hemoglobin 22.7 pg (27.0-31.0); Mean Corpuscular Volume 69.7 fL (78.0-98.0); Mean Platelet Volume 10.6 fL (7.4-10.4); Platelet Count 183 thou/uL (130-400); RBC Distribution Width 15.1 % (11.5-14.5); Red Blood Cell (RBC) Count 4.06 mill/uL (4.20-5.40); White Blood Cell (WBC) Count 12.5 thou/uL (4.8-10.8)
[2018-08-14 11:00] LABS: Band 8 % (5-11); Hypochromia SLIGHT = 6-15 cells (100X) (0-5/hpf); Lymphocytes 11 % (21-51); MDiff Complete? YES; Microcytosis MODERATE=15-30 cells (100X) (0-5/hpf); Monocytes 2 % (0-10); Neutrophil 79 % (42-75); Platelet Morphology Comment Appears Adequate; Polychromasia SLIGHT = 2-3 cells (100X) (0-2/hpf)
[2018-08-14] MEDS: Ondansetron ODT 4 MG TAB SL PRN (17:21)
[2018-08-14] MEDS: Albuterol Sulfate 1.25 MG/3 ML NEB NEB PRN (18:46)
[2018-08-14] MEDS: Azithromycin 250 MG TAB PO SCH (22:22)
[2018-08-15] MEDS ORDERED: diphenhydrAMINE 25 MG CAP PO PRN (01:09)
[2018-08-15] MEDS: Albuterol Sulfate 1.25 MG/3 ML NEB NEB PRN ×2 (01:31→23:19)
--- NOTE | 2018-08-15 04:00 | PDOC.OBAPN ---
R OB AP PN: Sub - Interval History Hospital Day: 4 Chief Complaint: Leaking of fluid, N/V Indentification: 27 y/o @ 31.6 WGA by 8.6 wk sono Interval History: Patient asleep this AM. Nurse reports pt had a good night. FMR OB AP PN: Obj - Maternal Vital signs: BP: 106/66 HR: 87 RR: 18 Tmax: 98.0F Pox: 98% on RA Wt: 58.97 kg - Urine output I&O: 08/13/18 08/14/18 08/15/18 06:59 06:59 06:59 Intake Total 720 Balance 720 R OB AP PN: Exam - Physical Exam General: NAD Deviation from normal: asleep and not wanting to wake up for exam HEENT: MMM Heart: RRR, normal S1/S2 General: CTAB, no respiratory distress Abdomen: soft, gravid, non-tender Musculoskeletal: pulses present Neurological: no focal deficit Skin: no rash, capillary refill <2 seconds Lymphatic: no unusual bruising or bleeding Deviation from normal: Unable to assess during this exam R OB AP PN: Data - Labs Lab results: Laboratory Results - last 24 hr 08/14/18 09:49 WBC 12.5 H RBC 4.06 L Hgb 9.2 L Hct 28.3 L MCV 69.7 L MCH 22.7 L MCHC 32.6 RDW 15.1 H Plt Count 183 MPV 10.6 H Neutrophils % (Manual) 79 H Band Neuts % (Manual) 8 Lymphocytes % (Manual) 11 L Monocytes % (Manual) 2 Neutrophils # Not Reportable Lymphocytes # Not Reportable Hypochromia SLIGHT = 6-15 cells Plt Morphology Comment Appears Adequate Polychromasia SLIGHT = 2-3 cells Microcytosis MODERATE=15-30 cells H R OB AP PN: A/P - Problem List (1) premature rupture of membranes Current Visit: Yes Status: Acute Code(s): O42.919 - PRETRM VERNON ROM, UNSP TIME BETW RUPT AND ONST LABR, UNSP TRI Assessment and Plan: 27 y/o @ 31.6 WGA by 8.6 wk US here for PPROM -PPROM confirmed with amnisure. YADIRA of 4.3 -s/p 2 doses celestone -s/p magnesium, but pt did not tolerate it with frequent checks and it was d/c' d early -Vanc and Azithromycin for GBS ppx; will switch to PO medications -Continue intermittent monitoring -Expectant management (2) Cannabis abuse Current Visit: No Status: Acute Code(s): F12.10 - CANNABIS ABUSE, UNCOMPLICATED (3) Seizure disorder Current Visit: No Status: Chronic Code(s): G40.909 - EPILEPSY, UNSP, NOT INTRACTABLE, WITHOUT STATUS EPILEPTICUS Assessment and Plan: -Pt had not been taking her Keppra outpatient -Started on 500 mg BID of keppra -Transition to PO (4) Hyperemesis gravidarum Current Visit: No Status: Acute Code(s): O21.0 - MILD HYPEREMESIS GRAVIDARUM Assessment and Plan: -Zofran and Phenergan prn -Monitor BMP Disposition: Stable. Continue current plan of care. Expectant management. Discussion: Date/Time: 08/15/18 0355 This H&P was discussed with Dr. Young who agrees with the above documentation and plan. Signature: Esperanza Molina DO PGY-2 Addendum - Attending - Attending Attestation Date/Time: 08/15/18 9371 I personally evaluated the patient and discussed the management with Dr. Molina. I agree with the History, Examination, Assessment and Plan documented above.
[2018-08-15] MEDS: Ondansetron ODT 4 MG TAB SL PRN (09:51)
[2018-08-15] MEDS: Famotidine 20 MG TAB PO SCH ×2 (14:12→23:32)
[2018-08-15] MEDS: levETIRAcetam 500 MG TAB PO SCH ×2 (14:13→23:33)
[2018-08-15] MEDS: Cefdinir 300 MG CAP PO SCH ×2 (14:13→23:33)
[2018-08-15] MEDS: Nicotine 14 MG PATCH TD SCH ×2 (14:13→14:15)
[2018-08-15] MEDS: guaiFENesin ER 600 MG TAB PO SCH ×2 (14:13→23:38)
--- NOTE | 2018-08-15 17:43 | ULT ---
ULTRASOUND OBSTETRICAL COMPLETE: 08/15/18 HISTORY: 27-year-old female with premature rupture of membranes. Evaluate anatomy. FINDINGS: number: Tadeo lie: Vertex Maternal cervix: Completely obscured by shadowing. Placenta: Anterior. No previa. Amniotic fluid volume: Low. YADIRA 4.5 cm. heart rate: 141 bpm The following anatomy is visualized, with no evidence of anomalies: Head, four chamber heart, stomach, kidneys, cord insertion, bladder, thoracic spine, lumbar spine, lo wer extremities, and three vessel cord. The lateral ventricles, cervical spine, sacrum, nose and lips, and upper limbs, are not well visualiz ed, due to positioning, oligohydramnios, and third trimester of . biometry: Head circumference (HC): 29.1 cm 32w 1d Biparietal diameter (BPD): 79 cm 31w 4d Abdominal circumference (AC): 26.4 cm 30w 3d Femur length (FL): 5.7 cm 29w 5d Average ultrasound age (AUA): 31w 0d Estimated date of delivery (GRACIE): 10/17/2018 Last menstrual period (LMP): 12/30/2017 Gestational age by LMP: 32w 4d Estimated weight (EFW): 1584 g +/- 234 g (3 lb 8 oz +/- 8 oz). IMPRESSION: 1. Live third trimester intrauterine gestation. 2. Estimated gestational age of 31 weeks, 0 days. 3. Cephalic lie. 4. Oligohydramnios. 5. Incomplete visualization of anatomy. CROW Arellano POS: LESA
[2018-08-15] MEDS: Azithromycin 250 MG TAB PO SCH (23:32)
--- NOTE | 2018-08-16 07:32 | PDOC.OBAPN ---
FMR OB AP PN: Sub - Interval History Hospital Day: 5 Chief Complaint: Leaking of fluid Indentification: 27 y/o @ 32.0 WGA by 8.6 wk sono Interval History: +FM, +LOF, Denies H/A, vision changes, N/V, ctx, vaginal bleeding FMR OB AP PN: Obj - Maternal Vital signs: BP: 129/56 HR: 89 RR: 17 Tmax: 98.0 Pox: 98% on RA - Heart Tones Baseline: 135 Variability: moderate Acceleration: present Deceleration: absent Category: category 1 [place] contractions every: None FMR OB AP PN: Exam - Physical Exam General: NAD, awake, alert and oriented HEENT: EOMI, MMM, conjunctiva clear, grossly normal vision, grossly normal hearing Neck: supple, FROM Heart: RRR, normal S1/S2, no murmurs/rubs/gallops, pulses present, no edema General: CTAB, no respiratory distress, good air movement, no rales/rhonchi, no wheezing Abdomen: soft, gravid, non-tender, bowel sound present Musculoskeletal: pulses present, FROM in all four extremities Skin: good tugor, capillary refill <2 seconds Lymphatic: no unusual bruising or bleeding, no purpura Psychiatric: intact recent and remote memory, good judgement and insight FMR OB AP PN: A/P - Problem List (1) premature rupture of membranes Current Visit: Yes Status: Acute Code(s): O42.919 - PRETRM VERNON ROM, UNSP TIME BETW RUPT AND ONST LABR, UNSP TRI Assessment and Plan: 27 y/o @ 32.0 WGA by 8.6 wk US here for PPROM -PPROM confirmed with amnisure. YADIRA of 4.3 -s/p 2 doses celestone -s/p magnesium, but pt did not tolerate it with frequent checks and it was d/c' d early -Azithromycin and Omnicef for GBS ppx, on day 4 of abx -Continue intermittent monitoring, NST's have been reactive -Expectant management -PNV (2) Hyperemesis gravidarum Current Visit: No Status: Acute Code(s): O21.0 - MILD HYPEREMESIS GRAVIDARUM Assessment and Plan: N/V better controlled at this time -Zofran prn (3) Seizure disorder Current Visit: No Status: Chronic Code(s): G40.909 - EPILEPSY, UNSP, NOT INTRACTABLE, WITHOUT STATUS EPILEPTICUS Assessment and Plan: Started Keppra 500mg po BID during hospitalization as pt had not been taking her seizure medication. Disposition: Continue expectant management on post- floor Discussion: Date/Time: 08/16/18730 This H&P was discussed with Dr. Laura who agrees with the above documentation and plan. Signature: Roz Rocha MD, PGY-2
[2018-08-16] MEDS: Nicotine 14 MG PATCH TD SCH (14:46)
[2018-08-16] MEDS: Ondansetron ODT 4 MG TAB SL PRN (14:47)
[2018-08-16] MEDS: guaiFENesin ER 600 MG TAB PO SCH (14:48)
[2018-08-16] MEDS: Famotidine 20 MG TAB PO SCH (14:49)
[2018-08-16] MEDS: Prenatal Vitamin 1 TAB PO SCH (14:49)
[2018-08-16] MEDS: Cefdinir 300 MG CAP PO SCH (14:50)
[2018-08-16] MEDS: levETIRAcetam 500 MG TAB PO SCH (14:50)
[2018-08-16] MEDS: Saccharomyces boulardii 250 MG CAP PO SCH (15:02)
[2018-08-16] MEDS: Albuterol Sulfate 1.25 MG/3 ML NEB NEB PRN (15:15)
[2018-08-17] MEDS ORDERED: Promethazine 25 MG TAB PO PRN (01:53)
[2018-08-17] MEDS: levETIRAcetam 500 MG TAB PO SCH ×4 (02:47→22:39)
[2018-08-17] MEDS: Famotidine 20 MG TAB PO SCH ×4 (02:47→22:39)
[2018-08-17] MEDS: guaiFENesin ER 600 MG TAB PO SCH ×4 (02:47→22:39)
[2018-08-17] MEDS: Azithromycin 250 MG TAB PO SCH (02:47)
[2018-08-17] MEDS: Cefdinir 300 MG CAP PO SCH ×4 (02:47→22:39)
--- NOTE | 2018-08-17 06:36 | PDOC.OBAPN ---
FMR OB AP PN: Sub - Interval History Hospital Day: 6 Chief Complaint: PPROM Indentification: 27 y/o @ 32.1 WGA by 8.6 wk sono Interval History: +FM, +LOF, + H/A & N/V, 1 ctx per day, no bldg, mild d/c FMR OB AP PN: Obj - Maternal Vital signs: BP: 110/61 HR: 72 RR: 20 Tmax: 98.1 Pox: 98% on ra Wt: 58.9kg - Heart Tones Baseline: 130 Variability: moderate Acceleration: present Deceleration: absent Category: category 1 [place] contractions every: none FMR OB AP PN: Exam - Physical Exam General: NAD, awake, alert and oriented HEENT: normocephalic and atraumatic, EOMI Neck: supple Heart: RRR, normal S1/S2, no murmurs/rubs/gallops General: CTAB, other (mild wheezes) Abdomen: soft, gravid, non-tender, bowel sound present Musculoskeletal: normal gait and station, pulses present Skin: no rash, capillary refill <2 seconds FMR OB AP PN: A/P - Problem List (1) premature rupture of membranes Current Visit: Yes Status: Acute Code(s): O42.919 - PRETRM VERNON ROM, UNSP TIME BETW RUPT AND ONST LABR, UNSP TRI (2) Hyperemesis gravidarum Current Visit: No Status: Acute Code(s): O21.0 - MILD HYPEREMESIS GRAVIDARUM (3) Seizure disorder Current Visit: No Status: Chronic Code(s): G40.909 - EPILEPSY, UNSP, NOT INTRACTABLE, WITHOUT STATUS EPILEPTICUS Disposition: 27 y/o @ 32.1 WGA by 8.6 wk US here for PPROM #PPROM, GBS+ -PPROM (08/12) confirmed with amnisure. YADIRA of 4.3 -s/p 2 doses celestone -s/p magnesium, but pt did not tolerate it with frequent checks and it was d/c' d early -Azithromycin day 5/5 and Omnicef day 5/7 for GBS ppx -Continue intermittent monitoring, NST's have been reactive -Expectant management, goal 34 weeks -PNV - recheck cbc/cmp in AM # Hyperemesis Gravidarum - zofran/phenergan - tolerated cheeseburger overnight # Seizure disorder - keppra 500mg BID started this hospitalization, was noncompliant with medication at home # Asthma/tobacco abuse - smoking 2 cigarettes per day - mild expiratory wheeze, cough, consider ipratropium if needed Code: full Fluids: TKO Diet: regular Dispo: goal 34 weeks, monitor for onset of fevers Discussion: Date/Time: 08/17/18 0636 This H&P was discussed with Dr. Jefferson agrees with the above documentation and plan. Addendum - Attending - Attending Attestation Date/Time: 08/17/18 3573 I evaluated the patient and discussed the management with Dr. Whitney. I agree with Assessment and Plan documented above.
[2018-08-17] MEDS: Prenatal Vitamin 1 TAB PO SCH (09:51)
[2018-08-17] MEDS: Nicotine 14 MG PATCH TD SCH (09:52)
[2018-08-17] MEDS: Saccharomyces boulardii 250 MG CAP PO SCH (09:52)
[2018-08-17] MEDS: Fluconazole 100 MG TAB PO SCH (17:54)
[2018-08-18] MEDS: Promethazine HCl 25 MG SUPP PR PRN (05:30)
--- NOTE | 2018-08-18 06:50 | PDOC.OBAPN ---
Addendum entered and electronically signed by Zane Ramirez MD 08/18/18 06:59: correct chief complaint: 32.2 wks today Original Note: FMR OB AP PN: Sub - Interval History Hospital Day: 7 Chief Complaint: 27 y/o @ 32.1 WGA by 8.6 wk sono Indentification: +FM, +LOF, + H/A & N/V, 4-5 ctx per day, no bldg, Interval History: refusing meds overnight FMR OB AP PN: Obj - Maternal Vital signs: BP: 108/67 HR: 80 RR: 18 Tmax: 98.0 Pox: 96% on RA Wt: 59kg - Heart Tones Baseline: 120 Variability: moderate Acceleration: present Deceleration: absent Category: category 1 [place] contractions every: 1 on NST FMR OB AP PN: Exam - Physical Exam General: NAD, awake, alert and oriented HEENT: normocephalic and atraumatic, PERRLA Neck: supple Heart: RRR, normal S1/S2, no murmurs/rubs/gallops General: CTAB, no respiratory distress, good air movement Abdomen: soft, gravid Musculoskeletal: normal gait and station Skin: no rash, good tugor, capillary refill <2 seconds Psychiatric: intact recent and remote memory FMR OB AP PN: A/P - Problem List (1) premature rupture of membranes Current Visit: Yes Status: Acute Code(s): O42.919 - PRETRM VERNON ROM, UNSP TIME BETW RUPT AND ONST LABR, UNSP TRI (2) Hyperemesis gravidarum Current Visit: No Status: Acute Code(s): O21.0 - MILD HYPEREMESIS GRAVIDARUM (3) Seizure disorder Current Visit: No Status: Chronic Code(s): G40.909 - EPILEPSY, UNSP, NOT INTRACTABLE, WITHOUT STATUS EPILEPTICUS Assessment and Plan: Pt seen by myself with dr ramirez. agree with management and current care plan Discussion: Date/Time: 08/18/18 0650 27 y/o @ 32.2 WGA by 8.6 wk US here for PPROM #PPROM, GBS+ -PPROM (08/12) confirmed with amnisure. YADIRA of 4.3 -s/p 2 doses celestone -s/p magnesium, but pt did not tolerate it with frequent checks and it was d/c' d early -Azithromycin completed 5 day course and Omnicef day 6/7 for GBS ppx -Continue intermittent monitoring, NST's have been reactive -Expectant management, goal 34 weeks -PNV - recheck cbc/cmp in AM # Hyperemesis Gravidarum - zofran/phenergan - tolerated cheeseburger overnight # Seizure disorder - keppra 500mg BID started this hospitalization, was noncompliant with medication at home # Asthma/tobacco abuse - smoking 2 cigarettes per day - mild expiratory wheeze, cough, consider ipratropium if needed # Social Discord - cps case because she "has not had anyone to take care of kids at home and she is stuck at hospital" - children now with family member in [place] - "belongings thrown on sidewalk because could not pay rent" - wants to leave AMA today - agrees to stay to talk with social work professor about possible housing options Code: full Fluids: TKO Diet: regular Dispo: goal 34 weeks, monitor for onset of fevers This H&P was discussed with Dr. Peng who agrees with the above documentation and plan.
[2018-08-18 07:52] LABS: Hemoglobin 9.8 g/dL (12.0-16.0); Mean Corpuscular HGB CONC 31.6 g/dL (32.0-36.0); Mean Corpuscular Volume 69.7 fL (78.0-98.0); Mean Platelet Volume 10.5 fL (7.4-10.4); Platelet Count 251 thou/uL (130-400); RBC Distribution Width 15.2 % (11.5-14.5); Red Blood Cell (RBC) Count 4.46 mill/uL (4.20-5.40); White Blood Cell (WBC) Count 14.5 thou/uL (4.8-10.8)
[2018-08-18 08:24] LABS: ALT (SGPT) 12 U/L (8-55); AST (SGOT) 15 U/L (5-34); Albumin 3.6 g/dL (3.5-5.0); Alkaline Phosphatase 99 U/L (40-150); Anion Gap 17 mmol/L (10-20); BUN (Urea Nitrogen) 8 mg/dL (7.0-18.7); Bilirubin, Total 0.6 mg/dL (0.2-1.2); Calc. Creatinine Clearance 129 mL/min (70-130); Calcium 9.4 mg/dL (7.8-10.44); Carbon Dioxide 21 mmol/L (22-29); Chloride 103 mmol/L (98-107); Estimated GFR-MDRD Greater than 90; Globulin 3.5 g/dL (2.4-3.5); Glucose 73 mg/dL (70-105); Potassium 3.8 mmol/L (3.5-5.1); Protein, Total 7.1 g/dL (6.0-8.3); Sodium 137 mmol/L (136-145)
[2018-08-18] MEDS: Cefdinir 300 MG CAP PO SCH (09:05)
[2018-08-18] MEDS: Nicotine 14 MG PATCH TD SCH (09:05)
[2018-08-18] MEDS: Famotidine 20 MG TAB PO SCH (09:05)
[2018-08-18] MEDS: levETIRAcetam 500 MG TAB PO SCH (09:06)
[2018-08-18] MEDS: Prenatal Vitamin 1 TAB PO SCH (09:06)
[2018-08-18] MEDS: Saccharomyces boulardii 250 MG CAP PO SCH (09:06)
[2018-08-18] MEDS: guaiFENesin ER 600 MG TAB PO SCH (09:06)
[2018-08-18 09:32] LABS: Band 3 % (5-11); Bite Cells SLIGHT = 2-5 cells (100X) (0-1/hpf); Hypochromia MODERATE=16-30 cells (100X) (0-5/hpf); Lymphocytes 14 % (21-51); MDiff Complete? YES; Microcytosis MODERATE=15-30 cells (100X) (0-5/hpf); Monocytes 3 % (0-10); Neutrophil 80 % (42-75); Platelet Morphology Comment Appears Adequate; Polychromasia MODERATE = 3-4 cells (100X) (0-2/hpf); Target Cells SLIGHT = 2-5 cells (100X) (0-1/hpf)
--- NOTE | 2018-08-18 12:11 | PDOC.EVN ---
Event Note - Event Note Event Note: Patient left AMA this morning after extensive talks. She is concerned because she was evicted from her house and her children were taken to [place] by CPS. She stated she would stay to talk to social staff worker but later left AMA. Called all 4 phone numbers on the chart but was unable to get ahold of patient. Will attempt to send cassandra to pharmacy. Went out to parking lot and looked for patient but no one was able to locate her.
[2018-08-19] MEDS: Famotidine 20 MG TAB PO SCH ×3 (00:16→22:05)
[2018-08-19] MEDS: Cefdinir 300 MG CAP PO SCH (00:16)
[2018-08-19] MEDS: guaiFENesin ER 600 MG TAB PO SCH ×3 (00:16→22:05)
[2018-08-19] MEDS: levETIRAcetam 500 MG TAB PO SCH ×3 (00:17→22:05)
[2018-08-19] MEDS: Ondansetron ODT 4 MG TAB SL PRN ×2 (00:17→11:01)
[2018-08-19] MEDS: Promethazine HCl 25 MG SUPP PR PRN ×2 (00:18→09:05)
--- NOTE | 2018-08-19 06:57 | PDOC.OBAPN ---
FMR OB AP PN: Sub - Interval History Hospital Day: 8 Indentification: 27 y/o @ 32.3 WGA by 8.6 wk sono Interval History: +FM, +LOF, + N/V, 4-5 ctx per day, +discharge FMR OB AP PN: Obj - Maternal Vital signs: BP: 97.9 HR: 95-111 RR: 20 Tmax: 98.4 Pox: 95% on RA Wt: 59 - Heart Tones Baseline: 130 Variability: moderate Acceleration: present Deceleration: absent Category: category 1 [place] contractions every: none on NST FMR OB AP PN: Exam - Physical Exam General: NAD, awake, alert and oriented HEENT: normocephalic and atraumatic, PERRLA Neck: supple Heart: RRR, normal S1/S2, no murmurs/rubs/gallops General: CTAB, no respiratory distress, good air movement Abdomen: soft, gravid, non-tender Deviation from normal: fundus non-tender to palpation Musculoskeletal: pulses present Skin: no rash, capillary refill <2 seconds FMR OB AP PN: Data - Labs Lab results: Laboratory Results - last 24 hr 08/18/18 08/18/18 07:04 07:04 WBC 14.5 H RBC 4.46 Hgb 9.8 L Hct 31.1 L MCV 69.7 L MCH 22.0 L MCHC 31.6 L RDW 15.2 H Plt Count 251 MPV 10.5 H Neutrophils % (Manual) 80 H Band Neuts % (Manual) 3 L Lymphocytes % (Manual) 14 L Monocytes % (Manual) 3 Neutrophils # Not Reportable Lymphocytes # Not Reportable Hypochromia MODERATE=16-30 cells H Plt Morphology Comment Appears Adequate Polychromasia MODERATE = 3-4 cells H Microcytosis MODERATE=15-30 cells H Target Cells SLIGHT = 2-5 cells Bite Cells SLIGHT = 2-5 cells Sodium 137 Potassium 3.8 Chloride 103 Carbon Dioxide 21 L Anion Gap 17 BUN 8 Creatinine 0.61 Estimated GFR (MDRD) Greater than 90 Glucose 73 Calcium 9.4 Total Bilirubin 0.6 AST 15 ALT 12 Alkaline Phosphatase 99 Serum Total Protein 7.1 Albumin 3.6 Globulin 3.5 Albumin/Globulin Ratio 1.0 L FMR OB AP PN: A/P - Problem List (1) premature rupture of membranes Current Visit: Yes Status: Acute Code(s): O42.919 - PRETRM VERNON ROM, UNSP TIME BETW RUPT AND ONST LABR, UNSP TRI (2) Hyperemesis gravidarum Current Visit: No Status: Acute Code(s): O21.0 - MILD HYPEREMESIS GRAVIDARUM (3) Seizure disorder Current Visit: No Status: Chronic Code(s): G40.909 - EPILEPSY, UNSP, NOT INTRACTABLE, WITHOUT STATUS EPILEPTICUS Discussion: Date/Time: 08/19/18 0657 27 y/o @ 32.3 WGA by 8.6 wk US here for PPROM #PPROM, GBS+ -PPROM (08/12) confirmed with amnisure. YADIRA of 4.3 -s/p 2 doses celestone -s/p magnesium, but pt did not tolerate it with frequent checks and it was d/c' d early -Azithromycin completed 5 day course and Omnicef day 01/24 for GBS ppx -Continue intermittent monitoring, NST's have been reactive -Expectant management, goal 34 weeks -PNV - fundus non-tender today, will continue to monitor closely for chorioamionitis # Hyperemesis Gravidarum - zofran/phenergan # Seizure disorder - keppra 500mg BID started this hospitalization, was noncompliant with medication at home # Asthma/tobacco abuse - smoking 2 cigarettes per day - mild expiratory wheeze, cough, consider ipratropium if needed # Social Discord - cps case because she "has not had anyone to take care of kids at home and she is stuck at hospital" - children now with family member in [place] - "belongings thrown on sidewalk because could not pay rent" - Left hospital and came back x2 yesterday, UA/UDS today - agrees to talk with adoption social worker about possible housing options Code: full Fluids: TKO Diet: regular Dispo: goal 34 weeks, monitor for onset of fevers This H&P was discussed with Dr. Laura who agrees with the above documentation and plan. Addendum - Attending - Attending Attestation Date/Time: 08/19/18 0755 I personally evaluated the patient and discussed the management with Dr. Whitney I agree with the History, Examination, Assessment and Plan documented above with any addition or exceptions noted below. add daily surfak. cbc. rectal suppository phergan for nausea and glycerin for constipation. Pt has not had a bm in about 5days. drug screen pending. will watch closely for signs, symptoms of developing chorio
[2018-08-19] MEDS ORDERED: Lactated Ringer's 1,000 ML IV SCH (07:00)
[2018-08-19] MEDS ORDERED: Glycerin Adult Supp. (12 ct jar) PR SCH (07:45)
[2018-08-19 08:17] LABS: #Basophils 0.1 thou/uL (0.0-0.2); #Lymphocytes 1.5 thou/uL (1.20-3.40); #Monocytes 0.4 thou/uL (0.11-0.59); #Neutrophils 6.6 thou/uL (1.40-6.50); %Basophils 0.6 % (0.0-1.0); %Eosinophils 0.4 % (0.0-10.0); %Lymphocytes 17.3 % (21.0-51.0); %Monocytes 4.7 % (0.0-10.0); %Neutrophils 76.9 % (42.0-75.0); Hemoglobin 9.7 g/dL (12.0-16.0); Mean Corpuscular HGB CONC 32.2 g/dL (32.0-36.0); Mean Corpuscular Hemoglobin 22.3 pg (27.0-31.0); Mean Corpuscular Volume 69.4 fL (78.0-98.0); Mean Platelet Volume 9.9 fL (7.4-10.4); Platelet Count 259 thou/uL (130-400); Red Blood Cell (RBC) Count 4.36 mill/uL (4.20-5.40); White Blood Cell (WBC) Count 8.6 thou/uL (4.8-10.8)
[2018-08-19] MEDS: Docusate Calcium (SURFAK) 240 MG CAP PO SCH ×2 (09:14→22:05)
[2018-08-19] MEDS: Saccharomyces boulardii 250 MG CAP PO SCH (09:14)
[2018-08-19] MEDS: Prenatal Vitamin 1 TAB PO SCH (09:14)
[2018-08-19] MEDS: Nicotine 14 MG PATCH TD SCH (09:15)
[2018-08-19 17:48] VITALS: BP 109/56; TEMP 98.3
[2018-08-19] MEDS ORDERED: Cefdinir 300 MG CAP PO SCH (21:00)
--- NOTE | 2018-08-21 14:27 | DIS ---
DATE OF ADMISSION: 08/12/2018 DATE OF DISCHARGE: 08/20/2018 RESIDENT: Dr. Zane Whitney. ADMITTING ATTENDING: Dr. Oswald Jefferson. DISCHARGE ATTENDING: Dr. Oswald Jefferson. CONSULT: None. PROCEDURES: None. PRIMARY DIAGNOSIS: premature rupture of membranes. SECONDARY DIAGNOSES: Hyperemesis gravidarum, seizure disorder, asthma/tobacco abuse, social discord. DISCHARGE MEDICATIONS: The patient left AMA, prescription for Keppra was sent to the patient's pharmacy. DISCONTINUED MEDICATIONS: None. HISTORY OF PRESENT ILLNESS AND HOSPITAL COURSE: This is a 27-year-old female, G4, P3, who presented at 31 and 3 weeks' gestational age with seizure disorder to the hospital for persistent vomiting. She states that she was vomiting for 3 days and was unable to keep anything down including medications. She was having clear discharge, which was persistent. She denied any other complications in her , she was changed to Keppra from her usual Dilantin, but was not taking it. This patient was found to have PPROM with positive AmniSure. She was inpatient for 8 days, admitted to 32 and 3 weeks' gestation before leaving AMA. The patient received 2 doses of Celestone and 1 dose of magnesium. The patient completed a 5-day course of azithromycin and a 7-day course of Omnicef for her GBS positive status. She had monitoring Q shift. Her vomiting was treated with Zofran and Phenergan. Seizure disorder was treated with Keppra. The patient had social discord during the stay. She states that there is no at home to take care of the kids while she was stuck in the hospital. She states that her children were taken away with family in [place]. She also states that she became homeless during the hospital stay. Social Work and Case Management were consulted to assist with these issues. DISPOSITION: Stable. DISCHARGE INSTRUCTIONS: Left AMA. She ultimately delivered at [facility] in [place] per nursing report. Job ID: [id number] [facility]
== END 2018-08-20 04:45 | disposition home or self-care (01) | DRG 832 ==
LOC: EEVIPCON 13:21 → L&D/OP 13:21 → L&D 15:32 → 3SW 08-13 16:19
PROVIDERS: ADMIT Obstetrics & Gynecology; ATTEND Obstetrics & Gynecology
DX: O42.913 Preterm premature rupture of membranes, unspecified as to length of time between rupture and onset of labor, third trimester (principal); O99.323 Drug use complicating pregnancy, third trimester; F12.10 Cannabis abuse, uncomplicated; Z3A.31 31 weeks gestation of pregnancy; O21.1 Hyperemesis gravidarum with metabolic disturbance; O99.353 Diseases of the nervous system complicating pregnancy, third trimester; G40.909 Epilepsy, unspecified, not intractable, without status epilepticus; O21.2 Late vomiting of pregnancy; Z53.21 Procedure and treatment not carried out due to patient leaving prior to being seen by health care provider; O99.343 Other mental disorders complicating pregnancy, third trimester; F32.9 Major depressive disorder, single episode, unspecified; F39 Unspecified mood [affective] disorder; O99.820 Streptococcus B carrier state complicating pregnancy; O99.333 Smoking (tobacco) complicating pregnancy, third trimester; O99.513 Diseases of the respiratory system complicating pregnancy, third trimester; J45.909 Unspecified asthma, uncomplicated; F17.210 Nicotine dependence, cigarettes, uncomplicated; Z79.899 Other long term (current) drug therapy; Z88.0 Allergy status to penicillin
CPT/HCPCS: 36415; 59025; 76805; 76815; 80053; 80306; 81003; 81015; 83735; 84112; 85025; 86780; 86850; 86900; 86901; 87077; 87081; 87086; 87340; 87389; 94640; J0456; J0690; J0702; J1200; J1953; J2405; J2550; J3370; J3475; J3480; J7050; Q0162; Q0163; Q0169

== ENCOUNTER 2018-11-18 18:16 | Day surgery (SDC) | payer OTHER ==
[2018-11-18 20:36] VITALS: BMI 20.9
[2018-11-18] MEDS ORDERED: Ondansetron PF 4 MG/2 ML Vial IVP PRN (20:39)
[2018-11-18] MEDS ORDERED: Ondansetron ODT 4 MG TAB SL PRN (20:39)
[2018-11-18] MEDS ORDERED: Lorazepam 2 MG/ML VIAL SLOW IVP PRN (20:40)
[2018-11-18] MEDS ORDERED: Sodium Chloride 0.9% 1,000 ML IV SCH (20:45)
--- NOTE | 2018-11-18 20:58 | PDOC.FPRHP ---
- History of Present Illness Chief Complaint: Seizures History of Present Illness: 27 yo F with PMH seizure disorder, bipolar, schizoprenia was transferred from [facility] ED for recurrent seizures. She was started on loading dose of Keppra which was then discontinued with concern for reaction as pt had another seizure there. Then started on loading dose of fosphenytoin. Patient will not responding to any questions. Loose body movements with visual hallucinations, talking to some girls in the room. No family present in room. ED Course: 40 meq K+, ativan, zofran, keppra which was then discontinued, fosphenytoin - Allergies/Adverse Reactions Allergies Allergy/AdvReac Type Severity Reaction Status Date / Time Penicillins Allergy Rash Verified 11/19/18 00:30 - Home Medications Medication Instructions Recorded Confirmed Type Acetaminophen [Tylenol Regular 650 mg PO Q4H PRN tab 11/20/18 Rx Strength] Acetaminophen [Tylenol Suppository] 650 mg VA Q4H PRN supp 11/20/18 Rx levETIRAcetam [Keppra] 1,500 mg PO BID #60 tab 11/20/18 Rx risperiDONE [RisperDAL] 1 mg PO DAILY #45 tab 11/20/18 Rx - History Per chart review. Unable to confirm with patient. PMHx: seizure disorder, asthma, bipolar, schizoprenia, anxiety/depression PSHx: cholecystectomy, cyst revomed from neck, trach as infant FHx: Unknown Social: Lives with friends/family. 2 cigarettes/day for 10 years. Social alcohol and drug use. - Review of Systems ROS unobtainable: due to mental status - Vital signs HR: 88 RR: 20 Tmax: 98.2 Pox: 100% on RA Wt: 55 kg - Physical Exam Constitutional: other (active hallucinations, will not respond to questions) HEENT: normocephalic and atraumatic Heart: RRR, normal S1/S2, no murmurs/rubs/gallops, no edema Lungs: CTAB Abdomen: soft Musculoskeletal: normal structure, normal tone Skin: good turgor FMR H&P: Results - Labs Result Diagrams: 11/20/18 05:22 11/20/18 05:22 FMR H&P: A/P - Problem List (1) Seizure disorder Status: Acute Code(s): G40.909 - EPILEPSY, UNSP, NOT INTRACTABLE, WITHOUT STATUS EPILEPTICUS (2) Hallucination Status: Acute Code(s): R44.3 - HALLUCINATIONS, UNSPECIFIED (3) Lactic acid increased Status: Acute Code(s): E87.2 - ACIDOSIS (4) Hyperbilirubinemia Status: Acute Code(s): E80.6 - OTHER DISORDERS OF BILIRUBIN METABOLISM (5) Trichomonal infection Status: Acute (6) Bipolar 1 disorder Status: Chronic Code(s): F31.9 - BIPOLAR DISORDER, UNSPECIFIED (7) Anxiety and depression Status: Chronic Code(s): F41.9 - ANXIETY DISORDER, UNSPECIFIED; F32.9 - MAJOR DEPRESSIVE DISORDER, SINGLE EPISODE, UNSPECIFIED (8) Asthma Status: Chronic Code(s): J45.909 - UNSPECIFIED ASTHMA, UNCOMPLICATED - Plan Recurrent seizures - in ED started on keppra but then discontinued with concern for unclear reaction, had another seizure. Given fosphenytoin loading dose. Had sinus tachycardia in ED but now resolved and VSS. - CT brain negative. test negative. - UDS positive for benzo. s/p dose of ativan. - Keppra is in pt home med list, unsure if compliant - will continue PO dilantin and consider neurology consult in am Visual hallucinations with history of schizoprenia - continue home risperdal - haldol ordered - Sitter ordered, patient is restless, trying to get out of bed and pull out IV Hypokalemia - given 40 meq in outside ED - will recheck on am labs Lactic acidosis - 3.3, will recheck in am for downtrend Trichamoniasis - seen on UA - treat with one time dose metronidazole Hyperbilirubinemia - T bili 2.6 - on chart review, T bili has been transiently elevated in past - will recheck in am Bipolar - continue home celexa - patient was unsure of other prescribed medication per ED report History of asthma - no inhalers on home med list Diet: NPO for now Ppx: SCD PCP: none Dispo: admit to stroke for observation Case discussed with Dr. Flores FMAdan H&P: [facility] - Pertinent history 27 yo F who was sent as transfer of care for recurrent seizures. Partial history obtained from patient, remainder obtained from chart review. She reports she has had n/v/d for many days, fever to 102 at home. She cannot contribute much else to history as she is acutely having visual hallucinations and speaking to her daughters who are not in the room saying "it's time to go, we need to do your hair" as well as "the villaseñor are coming from [place]." - Pertinent findings VSS, sinus tachycardia at outside hospital, NSR at this time Gen: awake, alert, intermittently upset, oriented x1, seeing visual hallucinations HEENT: NCAT, trachea midline CV: RRR, no murmur RESP: CTAB ABD: soft, NTND, bowel sounds present EXT: no edema, no acute deformity - Plan Date/Time: 11/18/182057 27 yo F with known history of seizure d/o and schizophrenia presents with recurrent seizures and acute psychosis 1. Recurrent seizures - Loaded with Keppra at OSH which was d/c'd 2/2 concern for adverse reaction ( seizure?) - Received 20 mg/kg of fosfenytoin at OSH - Start maintenance dilantin dose tomorrow - Ativan PRN seizure - Consider neurology consult in a.m. - CT at OSH WNL - Serum test negative at OSH 2. Schizophrenia with acute psychosis with visual hallucinations - Agitated and trying to get out of bed - s/p 10mg IM haldol - Restart home risperdal tomorrow 3. Trichomonas on UA - Will treat Please see Dr. Arora's note regarding remainder of A/P I, Sophia Miranda MD, PGY-3, have evaluated this patient and agree with findings/ plan as outlined by hr intern resident. Pertinent changes/additions are listed here. Addendum - Attending - Attending Attestation Date/Time: 12/06/18 0051 I personally evaluated the patient and discussed the management with Dr. Arora on 11/18/18 I agree with the History, Examination, Assessment and Plan documented above with any addition or exceptions noted below. 28 y.o. F with h/o Bipolar, schizophrenia here with recurrent sz's. No infectious source noted in history or exam. Loaded with anticonvulsants, remains delirious and hallucinating, start antipsychotic.
[2018-11-18] MEDS ORDERED: Acetaminophen 325 MG TAB PO PRN (20:59)
[2018-11-18] MEDS ORDERED: Acetaminophen 650 MG Suppository PR PRN (20:59)
[2018-11-18] MEDS ORDERED: Haloperidol Lactate 5 MG/ML VIAL IM SCH (21:15)
[2018-11-18] MEDS ORDERED: risperiDONE 1 MG TAB PO SCH (21:30)
[2018-11-19] MEDS ORDERED: metroNIDAZOLE 500 MG TAB PO SCH ×3 (01:00→11:45)
[2018-11-19 05:26] LABS: Lactic Acid 1.3 mmol/L (0.5-2.2)
[2018-11-19 05:31] LABS: ALT (SGPT) 10 U/L (8-55); AST (SGOT) 22 U/L (5-34); Albumin 3.7 g/dL (3.5-5.0); Alkaline Phosphatase 47 U/L (40-150); Anion Gap 11 mmol/L (10-20); BUN (Urea Nitrogen) 10 mg/dL (7.0-18.7); Bilirubin, Total 2.1 mg/dL (0.2-1.2); Calc. Creatinine Clearance 107 mL/min (70-130); Calcium 8.5 mg/dL (7.8-10.44); Carbon Dioxide 19 mmol/L (22-29); Chloride 112 mmol/L (98-107); Estimated GFR-MDRD Greater than 90; Globulin 2.3 g/dL (2.4-3.5); Potassium 3.3 mmol/L (3.5-5.1); Sodium 139 mmol/L (136-145)
[2018-11-19 05:33] LABS: Glucose 59 mg/dL (70-105)
[2018-11-19 05:37] LABS: Hypochromia SLIGHT = 6-15 cells (100X) (0-5/hpf); Large Platelets SLIGHT; Lymphocytes 48 % (21-51); MDiff Complete? YES; Mean Corpuscular HGB CONC 31.6 g/dL (32.0-36.0); Mean Corpuscular Hemoglobin 22.2 pg (27.0-31.0); Mean Corpuscular Volume 70.2 fL (78.0-98.0); Mean Platelet Volume 11.7 fL (7.4-10.4); Microcytosis SLIGHT = 6-15 cells (100X) (0-5/hpf); Monocytes 10 % (0-10); Neutrophil 39 % (42-75); Platelet Count 178 thou/uL (130-400); Platelet Morphology Comment Appears Adequate; RBC Distribution Width 17.1 % (11.5-14.5); Reactive Lymphocytes 3 % (0-10); Red Blood Cell (RBC) Count 4.95 mill/uL (4.20-5.40); Target Cells SLIGHT = 2-5 cells (100X) (0-1/hpf); White Blood Cell (WBC) Count 5.7 thou/uL (4.8-10.8)
--- NOTE | 2018-11-19 06:03 | PDOC.FM ---
- Subjective Subjective: No seizures over night. Patient with no complaints. - Objective Vital Signs & Weight: Vital Signs (12 hours) Temp Pulse Resp BP Pulse Ox 11/19/18 02:12 99.0 F 86 18 123/76 100 11/18/18 20:11 98.2 F 88 20 106/67 100 Weight Weight 55.202 kg Result Diagrams: 11/19/18 04:45 11/19/18 04:45 Phys Exam - Physical Examination Constitutional: NAD HEENT: PERRLA, moist MMs Respiratory: no wheezing, clear to auscultation bilateral Cardiovascular: RRR, no significant murmur Gastrointestinal: soft, non-tender Neurological: non-focal, moves all 4 limbs Psychiatric: normal affect, A&O x 3 Dx/Plan (1) Schizophrenia Code(s): F20.9 - SCHIZOPHRENIA, UNSPECIFIED Status: Acute (2) Microcytic anemia Code(s): D50.9 - IRON DEFICIENCY ANEMIA, UNSPECIFIED Status: Acute (3) Hallucination Code(s): R44.3 - HALLUCINATIONS, UNSPECIFIED Status: Acute (4) Hyperbilirubinemia Code(s): E80.6 - OTHER DISORDERS OF BILIRUBIN METABOLISM Status: Acute (5) Seizure disorder Code(s): G40.909 - EPILEPSY, UNSP, NOT INTRACTABLE, WITHOUT STATUS EPILEPTICUS Status: Acute (6) Trichomonal infection Status: Acute (7) Anxiety and depression Code(s): F41.9 - ANXIETY DISORDER, UNSPECIFIED; F32.9 - MAJOR DEPRESSIVE DISORDER, SINGLE EPISODE, UNSPECIFIED Status: Chronic (8) Bipolar 1 disorder Code(s): F31.9 - BIPOLAR DISORDER, UNSPECIFIED Status: Chronic - Plan Plan: Recurrent seizures -Seizure free since initial presentation -s/p Keppra and phenytoin loading dose -now on phenytoin maintenance at 150mg po BID -ddx: noncompliance vs K2 abuse (hx of cannabis abuse) Visual hallucinations with history of schizoprenia - continue home risperdal - haldol ordered - Sitter ordered, patient is restless, trying to get out of bed and pull out IV - med rec Microcytic anemia -MCV 77, Hb 11 -PBS: target cells -iron deficiency vs. thalassemia -obtain iron panel, Hb electrophoresis Hypokalemia - given 40 meq in outside ED - 3.3 on repeat, will replace PO Lactic acidosis - 3.3, will recheck in am for downtrend Trichamoniasis - per UA -s/p 1 time flagyl dose Hyperbilirubinemia - T bili 2.6-> 1.7 - will check tbili, could be transient Bipolar - med rec to see if patient on mood stabilizer Anxiety/Depression -reportedly on celexa, hold so won't precipitate manic episode with hx of bipolar and uncertainty if pt is on mood stabilizer History of asthma - no inhalers on home med list Diet: RD Ppx: SCD PCP: none Dispo: 1) Hypokalema-will reaplce, rechecking mg & phos as well too 2) Hyperbili -likely from gilbert's given chronicity & never >3. 3) Need med rec 4) Trich - 1x dose of flagyl Addendum - Attending - Attending Attestation Date/Time: 11/19/18 8487 I personally evaluated the patient and discussed the management with Dr. Laguna. I agree with the History, Examination, Assessment and Plan documented above with any addition or exceptions noted below. Patient was awake and alert this morning. She was admitted for seizures. She has been off seizure meds and schizophrenia meds. She has been loaded with dilantin. Will consult neurology. student financial aid manager will help with med rec for her psychiatric medications we can restart.
[2018-11-19] MEDS ORDERED: Potassium Chloride 20 MEQ TAB PO SCH (06:15)
[2018-11-19 08:08] LABS: Bilirubin, Direct 0.7 mg/dL (0.1-0.3)
[2018-11-19 08:09] LABS: Iron 208 ug/dL (50-170); Iron Binding Capacity, Total 241 mcg/dL (265-497)
[2018-11-19] MEDS: risperiDONE 1 MG TAB PO SCH (08:56)
[2018-11-19] MEDS ORDERED: Lorazepam 2 MG/ML VIAL SLOW IVP SCH (10:00)
[2018-11-19] MEDS ORDERED: Lorazepam 2 MG/ML VIAL SLOW IVP PRN (10:20)
[2018-11-19 12:26] LABS: Phosphorus 2.9 mg/dL (2.3-4.7)
[2018-11-20 05:59] LABS: ALT (SGPT) 8 U/L (8-55); AST (SGOT) 25 U/L (5-34); Albumin 3.7 g/dL (3.5-5.0); Alkaline Phosphatase 48 U/L (40-150); Anion Gap 10 mmol/L (10-20); BUN (Urea Nitrogen) 7 mg/dL (7.0-18.7); Bilirubin, Total 1.3 mg/dL (0.2-1.2); Calc. Creatinine Clearance 110 mL/min (70-130); Calcium 8.7 mg/dL (7.8-10.44); Carbon Dioxide 23 mmol/L (22-29); Chloride 107 mmol/L (98-107); Estimated GFR-MDRD Greater than 90; Globulin 2.4 g/dL (2.4-3.5); Glucose 77 mg/dL (70-105); Potassium 3.4 mmol/L (3.5-5.1); Protein, Total 6.1 g/dL (6.0-8.3); Sodium 137 mmol/L (136-145)
[2018-11-20 06:02] LABS: Hemoglobin 10.8 g/dL (12.0-16.0); Lymphocytes 67 % (21-51); MDiff Complete? YES; Mean Corpuscular HGB CONC 32.4 g/dL (32.0-36.0); Mean Corpuscular Hemoglobin 22.5 pg (27.0-31.0); Mean Corpuscular Volume 69.5 fL (78.0-98.0); Mean Platelet Volume 11.4 fL (7.4-10.4); Monocytes 8 % (0-10); Neutrophil 25 % (42-75); Platelet Count 173 thou/uL (130-400); Platelet Morphology Comment Appears Adequate; RBC Distribution Width 17.1 % (11.5-14.5); Red Blood Cell (RBC) Count 4.78 mill/uL (4.20-5.40); White Blood Cell (WBC) Count 4.4 thou/uL (4.8-10.8)
[2018-11-20] MEDS ORDERED: Potassium Chloride 20 MEQ TAB PO SCH (06:30)
--- NOTE | 2018-11-20 06:33 | PDOC.FM ---
- Subjective Subjective: NAEO. No seizures. No AVH. No issues or concerns. No SI/HI - Objective MAR Reviewed: Yes Vital Signs & Weight: Vital Signs (12 hours) Temp Pulse Resp BP Pulse Ox 11/20/18 04:00 98 F 67 16 98/55 L 100 11/19/18 23:51 98.5 F 75 20 134/61 97 11/19/18 20:00 97.5 F L 96 16 112/82 99 Weight Weight 55.202 kg I&O: 11/18/18 11/19/18 11/20/18 06:59 06:59 06:59 Intake Total 900 1859 Balance 900 1859 Result Diagrams: 11/20/18 05:22 11/20/18 05:22 Phys Exam - Physical Examination Constitutional: NAD HEENT: PERRLA, moist MMs Neck: full ROM Respiratory: no wheezing, clear to auscultation bilateral Cardiovascular: RRR, no significant murmur Neurological: non-focal, moves all 4 limbs Psychiatric: normal affect, A&O x 3 Dx/Plan (1) Schizophrenia Code(s): F20.9 - SCHIZOPHRENIA, UNSPECIFIED Status: Acute (2) Microcytic anemia Code(s): D50.9 - IRON DEFICIENCY ANEMIA, UNSPECIFIED Status: Acute (3) Hallucination Code(s): R44.3 - HALLUCINATIONS, UNSPECIFIED Status: Acute (4) Hyperbilirubinemia Code(s): E80.6 - OTHER DISORDERS OF BILIRUBIN METABOLISM Status: Acute (5) Seizure disorder Code(s): G40.909 - EPILEPSY, UNSP, NOT INTRACTABLE, WITHOUT STATUS EPILEPTICUS Status: Acute (6) Trichomonal infection Status: Acute (7) Anxiety and depression Code(s): F41.9 - ANXIETY DISORDER, UNSPECIFIED; F32.9 - MAJOR DEPRESSIVE DISORDER, SINGLE EPISODE, UNSPECIFIED Status: Chronic (8) Bipolar 1 disorder Code(s): F31.9 - BIPOLAR DISORDER, UNSPECIFIED Status: Chronic - Plan Plan: Recurrent seizures -Seizure free since initial presentation -s/p Keppra and phenytoin loading dose -cpmtomie phenytoin maintenance at 150mg po BID for now, appreciate neuro recs Visual hallucinations with history of schizoprenia - continue home risperdal - pending med rec Microcytic anemia -MCV 77, Hb 11 -PBS: target cells -iron deficiency vs. thalassemia -obtain iron panel, Hb electrophoresis Hypokalemia - 3.4, will replace PO Lactic acidosis, resolved Trichamoniasis - per UA -s/p 1 time 2g flagyl dose Hyperbilirubinemia - T bili 2.6-> 1.7 -> 1.3 - will check tbili, could be transient Bipolar - med rec to see if patient on mood stabilizer Anxiety/Depression -reportedly on celexa, hold so won't precipitate manic episode with hx of bipolar and uncertainty if pt is on mood stabilizer History of asthma - no inhalers on home med list - duonebs PRN Diet: RD Ppx: SCD PCP: none Dispo: 1) Hypokalemia-will reaplce PO 2) Hyperbili-trending down; likely from gilbert's given chronicity & never greater than 3. 3) Epilepsy-continue dilantin , pending neuro recs Addendum - Attending - Attending Attestation Date/Time: 11/20/18 1000 I personally evaluated the patient and discussed the management with Dr. Laguna. I agree with the History, Examination, Assessment and Plan documented above with any addition or exceptions noted below. The patient was seen by Dr. Sweeney and has been swapped to [facility]. Case mgmt is helping with discharge planning. Pt will d/c today.
[2018-11-20 07:42] VITALS: BP 121/86; TEMP 97.9
[2018-11-20] MEDS: risperiDONE 1 MG TAB PO SCH (08:49)
[2018-11-20] MEDS ORDERED: levETIRAcetam 500 MG TAB PO SCH (09:00)
--- NOTE | 2018-11-20 13:07 | CON ---
DATE OF CONSULTATION: 11/20/2018 CONSULTING PHYSICIAN: [facility]. IMPRESSION: Reported history of generalized seizures. PLAN: 1. Keppra 1500 mg twice a day. 2. Office followup. HISTORY OF PRESENT ILLNESS: Ms. Carpenter is a 27-year-old black female with reported history of seizures for her entire life. She was previously treated with Dilantin. She has taken off Dilantin due to . She has been on Keppra, but she does not know the dose she was on. She came in apparently due to seizure activity. She reports they have been poorly controlled for quite some time now. She is also being treated by the psychiatrist for bipolar disorder. PAST HISTORY: Otherwise, negative other than these two issues. SOCIAL HISTORY: She has 3 children, the youngest being 2-month-old. She is homeless and staying with friends. Denies any drug use or alcohol use. FAMILY HISTORY: Nothing significant. MEDICATIONS: Unknown other than the names including; 1. Keppra. 2. Risperdal. 3. Celexa. REVIEW OF SYSTEMS: Ten system review of systems is otherwise negative. PHYSICAL EXAMINATION: GENERAL: She is a healthy-appearing young woman, sitting in bed, in no acute distress. VITAL SIGNS: Blood pressure 102/76, pulse 68, respirations 16, and temperature 97.9. HEENT: Within normal limits. NECK: Supple. EXTREMITIES: No cyanosis. NEUROLOGIC: She is alert and appropriate. Her speech is fluent and clear. Cranial nerves are intact. Motor exam shows equal strength. No focal deficits were present, otherwise. LABORATORY STUDIES: White blood cell count 6.6, hemoglobin 12.2. Electrolytes; sodium 140, potassium 2.8, bicarb 16, and BUN 19. Liver enzymes were normal. SUMMARY: This is a young woman with history of seizures. It is unclear as to whether she is compliant with medication due to her social circumstances. I would go ahead and max out her Keppra dose to 1500 mg twice a day and I would be happy to follow up with her in the office. Job ID: [id number]
--- NOTE | 2018-11-21 03:29 | DIS ---
DATE OF ADMISSION: 11/18/2018 DATE OF DISCHARGE: 11/20/2018 RESIDENT: Mirian Laguna, PGY-1. CONSULTS: Dr. Sweeney, Neurology. PROCEDURES: None. IMAGING: No imaging. PRIMARY DIAGNOSES: 1. Seizure secondary to medication noncompliance. 2. History of generalized seizures. 3. Acute psychosis 4. SECONDARY DIAGNOSES: 1. Bipolar disorder. 2. Asthma. 3. Three months . 4. Direct hyperbilirubinemia. 5. Schizophrenia. DISCHARGE MEDICATIONS: 1. Risperdal 1 mg p.o. daily. 2. Keppra 1500 mg p.o. b.i.d. 3. Tylenol. DISCONTINUED MEDICATIONS: None. HISTORY OF PRESENT ILLNESS/HOSPITAL COURSE: Ms. Octavio Carpenter is a 27-year-old female, noncompliant, with seizure disorder, bipolar, schizophrenia , who was a [facility] transfer for seizures. Historically the patient has been on dilantin and Keppra recently due to her recent , however has not been taking her medication for the past two months. Per the patient, currently she has been having 4-5 seizures every day before coming to the ER. In the ER, she was given Keppra loading dose to abort the seizures, which was discontinued due to concern for reaction. So that she was started on Dilantin loading dose and maintenance. Neurology was consulted, who recommended starting Keppra for maintenance seizure prophylaxis. Over the course of hospital admission, the patient did not experience any further seizures. ACUTE PSYCHOSIS: The patient presented with visual and auditory hallucinations. She has history of schizophrenia, but is not on any type of medications. She was started on Risperdal and plans to continue this. Upon discharge, she was not acutely psychotic. 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 Bipolar disorder. The patient was not acutely manic. We made a decision not to start a mood stabilizer since there had been a lot of change in her medications. She was given instructions to follow up outpatient to initiate this as needed. The patient was given instructions to follow up with Dr. Sweeney and establish care with PCP in order to continue further management with psychiatric disorders and seizures. Medications were sent in to her requested pharmacy. DISPOSITION: Stable. DISCHARGE INSTRUCTIONS: 1. Location: Home. 2. Diet: Heart healthy. 3. Activity: As tolerated. 4. Followup: a. Please follow up with Dr. Sweeney within 1 week. b. Please follow up with PCP at [facility] to establish care and hospital followup. Job ID: [id number] MTDD
[2018-11-24 09:17] LABS: Hemoglobin A 90.3 % (96.4-98.8); Hemoglobin A2 4.7 % (1.8-3.2); Interpretation Note: (.)
== END 2018-11-20 12:32 | disposition home or self-care (01) ==
LOC: SDC 18:16 → INTOOBSV 18:16 → UNDOADMOB 18:16 → 2SW 18:16 → 2SE 19:24 → 2SW 19:24 → UNDODISOB 11-20 12:32 → SDC 11-20 12:32 → EDSTATUS 12-04 16:51
PROVIDERS: ATTEND Family Medicine
DX: G40.909 Epilepsy, unspecified, not intractable, without status epilepticus (principal); F23 Brief psychotic disorder; F31.9 Bipolar disorder, unspecified; E87.2 Acidosis; E80.6 Other disorders of bilirubin metabolism; F41.9 Anxiety disorder, unspecified; J45.909 Unspecified asthma, uncomplicated; A59.9 Trichomoniasis, unspecified; E87.6 Hypokalemia; D50.9 Iron deficiency anemia, unspecified; Z91.14 Patient's other noncompliance with medication regimen; Z79.899 Other long term (current) drug therapy; Z88.0 Allergy status to penicillin
CPT/HCPCS: 36415; 36416; 80053; 82248; 82728; 83021; 83540; 83550; 83605; 83735; 84100; 84443; 85025; J1630

== ENCOUNTER 2021-08-19 18:59 | Emergency (ER) | payer OTHER ==
[2021-08-19 19:44] LABS: Hemoglobin 11.7 g/dL (12.0-16.0); Mean Corpuscular HGB CONC 34.5 g/dL (32.0-36.0); Mean Corpuscular Hemoglobin 25.4 pg (27.0-31.0); Mean Corpuscular Volume 73.6 fL (78.0-98.0); Mean Platelet Volume 9.5 fL (7.4-10.4); Platelet Count 264 thou/uL (130-400); RBC Distribution Width 15.7 % (11.5-14.5); Red Blood Cell (RBC) Count 4.61 mill/uL (4.20-5.40); White Blood Cell (WBC) Count 6.8 thou/uL (4.8-10.8)
[2021-08-19 20:07] LABS: BHCG - Serum Negative (NEGATIVE); Pregs Control Background? CLEAR/WHITE (CLR/WHITE); Pregs Control Bar Appear? YES (CONTROL BAR)
[2021-08-19 20:08] LABS: Lymphocytes 22 % (21-51); MDiff Complete? YES; Microcytosis SLIGHT = 6-15 cells (100X) (0-5/hpf); Monocytes 12 % (0-10); Neutrophil 55 % (42-75); Ovalocytes SLIGHT = 2-5 cells (100X) (0-1/hpf); Platelet Morphology Comment Appears Adequate; Polychromasia SLIGHT = 2-3 cells (100X) (0-2/hpf); Reactive Lymphocytes 10 % (0-10); Target Cells MODERATE= 6-15 cells (100X) (0-1/hpf)
[2021-08-19 20:16] LABS: ALT (SGPT) 9 U/L (8-55); AST (SGOT) 16 U/L (5-34); Albumin 3.9 g/dL (3.5-5.0); Alkaline Phosphatase 49 U/L (40-110); Anion Gap 13 mmol/L (10-20); BUN (Urea Nitrogen) 12 mg/dL (7.0-18.7); Bilirubin, Total 0.7 mg/dL (0.2-1.2); Calc. Creatinine Clearance 0 mL/min (70-130); Calcium 9.4 mg/dL (7.8-10.44); Carbon Dioxide 27 mmol/L (22-29); Chloride 104 mmol/L (98-107); Globulin 3.2 g/dL (2.4-3.5); Glucose 99 mg/dL (70-105); Potassium 4.3 mmol/L (3.5-5.1); Protein, Total 7.1 g/dL (6.0-8.3); Sodium 140 mmol/L (136-145)
[2021-08-19] MEDS ORDERED: Boostrix 0.5 ML (Tdap) VIAL ONE (20:48)
[2021-08-19] MEDS ORDERED: CEFAZOLIN 1 GM VIAL ONE (20:48)
[2021-08-19] MEDS ORDERED: Lidocaine 1% (PF) 30 ML VIAL ONE (21:20)
[2021-08-19] MEDS ORDERED: Xylocaine 1% w/ Epi 1:100K 10 ML VIAL ONE (21:20)
== END 2021-08-19 23:45 ==
LOC: ERS 18:59
DX: R56.9 Unspecified convulsions (principal); F17.210 Nicotine dependence, cigarettes, uncomplicated
CPT/HCPCS: 36415; 80053; 83605; 84146; 84703; 85025; 90715; 96365; J0690; J2001; Q2009

== ENCOUNTER 2021-11-30 21:17 | Emergency (ER) | payer OTHER, SELFPAY ==
[2021-11-30] MEDS ORDERED: Lorazepam 2 MG/ML VIAL ONE (21:36)
[2021-11-30 21:51] LABS: #Basophils 0.2 thou/uL (0.0-0.2); #Eosinphils 1.2 thou/uL (0.0-0.7); #Lymphocytes 3.9 thou/uL (1.20-3.40); #Monocytes 0.6 thou/uL (0.11-0.59); #Neutrophils 2.9 thou/uL (1.40-6.50); %Basophils 2.1 % (0.0-1.0); %Eosinophils 13.9 % (0.0-10.0); %Lymphocytes 44.6 % (21.0-51.0); %Neutrophils 32.5 % (42.0-75.0); Hemoglobin 11.3 g/dL (12.0-16.0); Mean Corpuscular HGB CONC 32.7 g/dL (32.0-36.0); Mean Corpuscular Hemoglobin 23.8 pg (27.0-31.0); Mean Corpuscular Volume 72.9 fL (78.0-98.0); Mean Platelet Volume 10.4 fL (7.4-10.4); Platelet Count 222 thou/uL (130-400); RBC Distribution Width 15.9 % (11.5-14.5); Red Blood Cell (RBC) Count 4.74 mill/uL (4.20-5.40); White Blood Cell (WBC) Count 8.8 thou/uL (4.8-10.8)
[2021-11-30 21:56] LABS: BHCG - Serum Negative (NEGATIVE); Pregs Control Background? CLEAR/WHITE (CLR/WHITE); Pregs Control Bar Appear? YES (CONTROL BAR)
[2021-11-30 22:10] LABS: Acetaminophen Less than 10.0 mcg/mL (10.0-30.0); Alcohol Less than 10 mg/dL (Less than 10); Salicylate Less than 8.0 mg/dL (15.0-30.0)
[2021-11-30 22:11] LABS: ALT (SGPT) 7 U/L (8-55); AST (SGOT) 16 U/L (5-34); Albumin 4.3 g/dL (3.5-5.0); Alkaline Phosphatase 47 U/L (40-110); Anion Gap 16 mmol/L (10-20); BUN (Urea Nitrogen) 13 mg/dL (7.0-18.7); Bilirubin, Total 1.1 mg/dL (0.2-1.2); Calc. Creatinine Clearance 0 mL/min (70-130); Calcium 9.8 mg/dL (7.8-10.44); Carbon Dioxide 22 mmol/L (22-29); Chloride 104 mmol/L (98-107); Globulin 2.9 g/dL (2.4-3.5); Glucose 87 mg/dL (70-105); Potassium 3.8 mmol/L (3.5-5.1); Protein, Total 7.2 g/dL (6.0-8.3); Sodium 138 mmol/L (136-145)
[2021-11-30] MEDS ORDERED: Fosphenytoin Sodium 1,250 MG in Sodium Chloride 0.9% 50 ML IVPB SCH (22:15)
[2021-11-30 22:24] LABS: Anisocytosis SLIGHT = 6-15 cells (100X) (0-5/hpf); Basophilic Stippling SLIGHT = 1-2 cells (100X) (None Seen); Elliptocytes SLIGHT = 2-5 cells (100X) (0-1/hpf); MDiff Complete? YES; Microcytosis SLIGHT = 6-15 cells (100X) (0-5/hpf); Platelet Morphology Comment Appears Adequate; Reflex for Review?? YES; Target Cells MARKED = >16 cells (100X) (0-1/hpf); Tear Drops SLIGHT = 2-5 cells (100X) (0-1/hpf)
== END 2021-12-01 00:21 ==
LOC: ERS 21:17
DX: R56.9 Unspecified convulsions (principal); F17.210 Nicotine dependence, cigarettes, uncomplicated
CPT/HCPCS: 36415; 80053; 80307; 83605; 84703; 85025; 85060; 93005; 96365; 96375; J2060; Q2009

== ENCOUNTER 2021-12-04 13:36 | Emergency (ER) | payer OTHER, SELFPAY ==
[2021-12-04] MEDS ORDERED: Lorazepam 2 MG/ML VIAL ONE (14:24)
[2021-12-04] MEDS ORDERED: levETIRAcetam 500 MG/5 ML VIAL ONE (14:26)
[2021-12-04 14:50] LABS: Mean Corpuscular HGB CONC 31.6 g/dL (32.0-36.0); Mean Corpuscular Hemoglobin 22.8 pg (27.0-31.0); Mean Corpuscular Volume 72.4 fL (78.0-98.0); Mean Platelet Volume 10.7 fL (7.4-10.4); Platelet Count 237 thou/uL (130-400); RBC Distribution Width 15.8 % (11.5-14.5); Red Blood Cell (RBC) Count 5.24 mill/uL (4.20-5.40); White Blood Cell (WBC) Count 7.6 thou/uL (4.8-10.8)
[2021-12-04 14:55] LABS: BHCG - Serum Negative (NEGATIVE); Pregs Control Background? CLEAR/WHITE (CLR/WHITE); Pregs Control Bar Appear? YES (CONTROL BAR)
[2021-12-04 15:08] LABS: Anisocytosis SLIGHT = 6-15 cells (100X) (0-5/hpf); Eosinophils 12 % (0-10); Hypochromia SLIGHT = 6-15 cells (100X) (0-5/hpf); Large Platelets SLIGHT; Lymphocytes 28 % (21-51); MDiff Complete? YES; Microcytosis SLIGHT = 6-15 cells (100X) (0-5/hpf); Monocytes 3 % (0-10); Neutrophil 55 % (42-75); Platelet Morphology Comment Appears Adequate; Reactive Lymphocytes 1 % (0-10)
[2021-12-04 15:11] LABS: ALT (SGPT) 8 U/L (8-55); AST (SGOT) 15 U/L (5-34); Albumin 4.2 g/dL (3.5-5.0); Alkaline Phosphatase 52 U/L (40-110); Anion Gap 12 mmol/L (10-20); BUN (Urea Nitrogen) 11 mg/dL (7.0-18.7); Bilirubin, Total 0.7 mg/dL (0.2-1.2); Calc. Creatinine Clearance 0 mL/min (70-130); Calcium 9.4 mg/dL (7.8-10.44); Carbon Dioxide 25 mmol/L (22-29); Chloride 104 mmol/L (98-107); Globulin 3.4 g/dL (2.4-3.5); Glucose 105 mg/dL (70-105); Protein, Total 7.6 g/dL (6.0-8.3); Sodium 137 mmol/L (136-145)
== END 2021-12-04 16:45 ==
LOC: ERS 13:36
DX: S46.912A Strain of unspecified muscle, fascia and tendon at shoulder and upper arm level, left arm, initial encounter (principal); S16.1XXA Strain of muscle, fascia and tendon at neck level, initial encounter; G40.909 Epilepsy, unspecified, not intractable, without status epilepticus; W19.XXXA Unspecified fall, initial encounter; Y92.149 Unspecified place in prison as the place of occurrence of the external cause
CPT/HCPCS: 36415; 70450; 72125; 80053; 80177; 84703; 85025; 94760; 96374; 96375; J1953; J2060

== ENCOUNTER 2021-12-04 23:37 | Emergency (ER) | payer SELFPAY | END 2021-12-05 00:43 | LOC: ERS 23:37 | DX: R56.9 Unspecified convulsions (principal); J45.909 Unspecified asthma, uncomplicated | CPT/HCPCS: 99284 ==

== ENCOUNTER 2022-09-06 12:31 | Emergency (ER) | payer SELFPAY ==
[2022-09-06] MEDS ORDERED: LORazepam 2 MG/ML SYR.(CARPUJECT) ONE (12:45)
[2022-09-06] MEDS ORDERED: levETIRAcetam 500 MG/5 ML VIAL ONE (13:01)
[2022-09-06 13:09] LABS: #Basophils 0.1 thou/uL (0.0-0.2); #Eosinphils 0.1 thou/uL (0.0-0.7); #Lymphocytes 1.8 thou/uL (1.20-3.40); #Monocytes 0.5 thou/uL (0.11-0.59); %Basophils 0.8 % (0.0-1.0); %Eosinophils 1.2 % (0.0-10.0); %Lymphocytes 24.2 % (21.0-51.0); %Monocytes 6.9 % (0.0-10.0); %Neutrophils 66.9 % (42.0-75.0); Mean Corpuscular HGB CONC 32.5 g/dL (32.0-36.0); Mean Corpuscular Hemoglobin 23.4 pg (27.0-31.0); Mean Corpuscular Volume 72.1 fl (78.0-98.0); Mean Platelet Volume 10.7 fL (7.4-10.4); Platelet Count 227 10x3/uL (130-400); RBC Distribution Width 15.8 % (11.5-14.5); Red Blood Cell (RBC) Count 4.68 mill/uL (4.20-5.40); White Blood Cell (WBC) Count 7.4 10x3/uL (4.8-10.8)
[2022-09-06 13:14] LABS: BHCG - Serum Negative (NEGATIVE); Pregs Control Background? CLEAR/WHITE (CLR/WHITE); Pregs Control Bar Appear? YES (CONTROL BAR)
[2022-09-06 13:26] LABS: ALT (SGPT) 7 U/L (8-55); AST (SGOT) 17 U/L (5-34); Albumin 4.2 g/dL (3.5-5.0); Alkaline Phosphatase 49 U/L (40-110); Anion Gap 16 mmol/L (10-20); BUN (Urea Nitrogen) 12 mg/dL (7.0-18.7); Bilirubin, Total 1.3 mg/dL (0.2-1.2); Calc. Creatinine Clearance 0 mL/min (70-130); Calcium 9.4 mg/dL (7.8-10.44); Carbon Dioxide 22 mmol/L (22-29); Chloride 106 mmol/L (98-107); Estimated GFR 111; Globulin 2.8 g/dL (2.4-3.5); Glucose 92 mg/dL (70-105); Sodium 140 mmol/L (136-145)
[2022-09-06 13:27] LABS: Acetaminophen Less than 10.0 mcg/mL (10.0-30.0); Alcohol Less than 10 mg/dL (Less than 10); Salicylate Less than 8.0 mg/dL (15.0-30.0)
[2022-09-06 13:36] LABS: Anisocytosis SLIGHT = 6-15 cells (100X) (0-5/hpf); Hypochromia SLIGHT = 6-15 cells (100X) (0-5/hpf); MDiff Complete? YES; Microcytosis SLIGHT = 6-15 cells (100X) (0-5/hpf); Ovalocytes SLIGHT = 2-5 cells (100X) (0-1/hpf); Platelet Morphology Comment Appears Adequate; Polychromasia SLIGHT = 2-3 cells (100X) (0-2/hpf); Target Cells SLIGHT = 2-5 cells (100X) (0-1/hpf)
== END 2022-09-06 15:58 ==
LOC: ERS 12:31
DX: R56.9 Unspecified convulsions (principal)
CPT/HCPCS: 36415; 70450; 71045; 80053; 80307; 84443; 84484; 84703; 85025; 85379; 93005; 96365; 96375; J1953; J2060